=== PATIENT | male | born 1955 | race Caucasian/White ===

== ENCOUNTER → 2017-04-25 06:48 | Outpatient (CLI) | payer OTHER, SELFPAY ==
[2017-04-25 08:14] LABS: Absolute Neutrophil Count 2.8 X10^3/uL (2.0-7.7); Basophil# 0.03 X10^3/uL; Basophil% 0.6 % (0-1); Eosinophil# 0.21 X10^3/uL; Hematocrit 40.7 % (40-54); Hemoglobin 13.5 g/dl (13.0-16.5); Lymphocyte % 30.7 % (19-41); Mean Corp Hgb Conc 33.2 g/gl (32-36); Mean Corpuscular Hgb 29.9 pg (27.0-32.0); Mean Corpuscular Volume 90.2 fL (80-94); Mean Platelet Vol. 11.1 fl (6.2-12.0); Monocyte# 0.59 X10^3/uL; Monocyte% 11.3 % (0-10); Neutrophil # 2.78 X10^3/uL (2.7-7.7); Neutrophil % 53.4 % (47-70); Platelet Count 196 K/mm3 (150-450); RBC Distribution Width CV 12.8 % (11.6-14.6); RBC Distribution Width SD 41.7 fl (35.1-43.9); Red Blood Count 4.51 M/mm3 (4.6-6.2); White Blood Count 5.2 K/mm3 (4.4-11.0)
[2017-04-25 08:20] LABS: POSITIVE COUNT NO; POSITIVE DIFFERENTIAL NO; POSITIVE MORPHOLOGY NO
[2017-04-25 08:48] LABS: ALB/GLOB Ratio 1.1 RATIO (0.9-2.4); AST(SGOT) 36 U/L (15-37); Alanine Aminotransfer ALT/SGPT 53 U/L (16-61); Albumin, Serum 3.8 g/dL (3.2-5.0); Alkaline Phosphatase 78 U/L (45-117); Anion Gap 9 (5-15); BUN 18 mg/dL (7-18); BUN/Creat Ratio 17.6 RATIO (10-20); Calcium,Total 8.3 mg/dL (8.5-10.1); Chloride 103 mmol/L (98-107); Creatinine, Serum 1.02 mg/dL (0.70-1.30); EST Glomerular Filtration Rate 78 mL/min (>60); Est Glom Filt Rate - Afr Amer 95 mL/min (>60); Globulin 3.4 g/dL (2.2-4.2); Glucose 87 mg/dL (70-110); Potassium 3.8 mmol/L (3.5-5.1); Protein, Total 7.2 g/dL (6.4-8.2); Sodium Level 138 mmol/L (136-145); Uric Acid 7.8 mg/dL (3.5-7.2)
== END ==
PROVIDERS: Family Provider Internal Medicine; PCP Internal Medicine; Visit Provider Internal Medicine Rheumatology
DX: M06.4 Inflammatory polyarthropathy (principal); M10.9 Gout, unspecified; M18.9 Osteoarthritis of first carpometacarpal joint, unspecified; K90.0 Celiac disease; J30.89 Other allergic rhinitis
CPT/HCPCS: 36415; 80053; 84550; 85025

== ENCOUNTER → 2017-06-01 07:44 | Outpatient (CLI) | payer OTHER, SELFPAY ==
[2017-06-02 09:48] LABS: Vitamin D,25 Hydroxy 17.3 ng/mL (29.95-100.01)
[2017-06-02 16:10] LABS: Endomysial Antibody IgA Negative (Negative)
[2017-06-03 13:03] LABS: Immunoglobulin A 245 mg/dL (61-437); t-Transglutaminase IgA <2 U/mL (0-3)
== END ==
PROVIDERS: Family Provider Internal Medicine; PCP Internal Medicine; Visit Provider Internal Medicine Gastroenterology
DX: K90.0 Celiac disease (principal)
CPT/HCPCS: 36415; 82306; 82784; 83516; 86255

== ENCOUNTER → 2017-07-28 06:33 | Outpatient (CLI) | payer OTHER, SELFPAY ==
[2017-07-28 07:13] LABS: Absolute Lymphocyte Count 1.67 X10^3/ul (0.83-4.51); Basophil# 0.03 X10^3/uL; Basophil% 0.5 % (0-1); Eosinophils% 3.7 % (0-5); Hematocrit 39.5 % (40-54); Hemoglobin 13.6 g/dl (13.0-16.5); Lymphocyte # 1.67 X10^3/ul (4.0); Lymphocyte % 30.5 % (19-41); Mean Corp Hgb Conc 34.4 g/gl (32-36); Mean Corpuscular Hgb 30.8 pg (27.0-32.0); Mean Corpuscular Volume 89.6 fL (80-94); Mean Platelet Vol. 10.8 fl (6.2-12.0); Monocyte# 0.54 X10^3/uL; Monocyte% 9.9 % (0-10); Neutrophil # 3.01 X10^3/uL (2.7-7.7); Platelet Count 205 K/mm3 (150-450); RBC Distribution Width CV 12.5 % (11.6-14.6); RBC Distribution Width SD 40.7 fl (35.1-43.9); Red Blood Count 4.41 M/mm3 (4.6-6.2); White Blood Count 5.5 K/mm3 (4.4-11.0)
[2017-07-28 07:15] LABS: POSITIVE COUNT NO; POSITIVE DIFFERENTIAL NO; POSITIVE MORPHOLOGY NO
[2017-07-28 07:24] LABS: ALB/GLOB Ratio 1.4 RATIO (0.9-2.4); AST(SGOT) 38 U/L (15-37); Alanine Aminotransfer ALT/SGPT 55 U/L (16-61); Albumin, Serum 4.1 g/dL (3.2-5.0); Alkaline Phosphatase 78 U/L (45-117); Anion Gap 7 (5-15); BUN 21 mg/dL (7-18); BUN/Creat Ratio 17.6 RATIO (10-20); Calcium,Total 8.6 mg/dL (8.5-10.1); Chloride 106 mmol/L (98-107); Creatinine, Serum 1.19 mg/dL (0.70-1.30); EST Glomerular Filtration Rate 66 mL/min (>60); Est Glom Filt Rate - Afr Amer 79 mL/min (>60); Glucose 85 mg/dL (74-106); Potassium 4.1 mmol/L (3.5-5.1); Protein, Total 7.1 g/dL (6.4-8.2); Sodium Level 139 mmol/L (136-145); Uric Acid 4.8 mg/dL (3.5-7.2)
[2017-07-28 08:20] LABS: Vitamin D,25 Hydroxy 24.7 ng/mL (29.95-100.01)
== END ==
PROVIDERS: Family Provider Internal Medicine; PCP Internal Medicine; Visit Provider Internal Medicine Rheumatology
DX: M06.4 Inflammatory polyarthropathy (principal); M10.9 Gout, unspecified; M18.9 Osteoarthritis of first carpometacarpal joint, unspecified; K90.0 Celiac disease; J30.89 Other allergic rhinitis
CPT/HCPCS: 36415; 80053; 82306; 84550; 85025

== ENCOUNTER → 2017-08-10 09:11 | Outpatient (CLI) | payer OTHER, SELFPAY ==
--- NOTE | 2017-08-10 09:21 | BD_ITS ---
STUDY: DUAL ENERGY X-RAY ABSORPTIOMETRY / DXA REASON FOR EXAM: Male, 61 years old. History of the celiac disease. Loss of height. TECHNIQUE: Bone Mineral Density (BMD) measurements of lumbar spine and bilateral hips were obtained. COMPARISON: None. FINDINGS: Lumbar Spine (L1-L4): g/cm2 (1.382) / T-score (1.2) / Z-score (1.6) Findings are suggestive of normal bone density with a low fracture risk. Left Femur Total: g/cm2 (1.192) / T-score (0.6) / Z-score (1.2) Left Femoral Neck: g/cm2 (1.105) / T-score (0.3) / Z-score (1.3) Right Femur Total: g/cm2 (1.212) / T-score (0.8) / Z-score (1.3) Right Femoral Neck: g/cm2 (1.074) / T-score (0.0) / Z-score (1.1) BD/Dexa Bone Density Study IMPRESSION: The patient is considered normal as outlined below according to World Ryan Organization (WHO) criteria with a low fracture risk. Reference Information: The T-score is the number of standard deviations above or below the standard which is normal for young adults at their peak bone mineral density. The World Health Organization (WHO) interprets the T-scores as follows: Above -1 Normal bone density Between -1 and -2.5 Osteopenia Equal to / or below -2.5 Osteoporosis As a practical clinical guideline, osteopenia may be graded as follows: Mild -1 through -1.5 Moderate -1.6 through -2.0 Severe -2.1 through -2.4 The Z-score is the number of standard deviations above or below age-matched controls. A Z-score of less than -1.5 would be considered abnormal. References: 1. NIH Osteoporosis and Related Bone Diseases http://www.osteo.org 2. International Society for Clinical Densitometry http://www.iscd.org 3. National Osteoporosis Foundation http://www.nof.org Electronically Signed: Corey Cristina MD at 9:52 EDT Tel [phone], Service support ,
== END ==
PROVIDERS: Visit Provider Internal Medicine Gastroenterology
DX: K90.0 Celiac disease (principal)
CPT/HCPCS: 77080

== ENCOUNTER → 2017-09-15 06:44 | Outpatient (CLI) | payer OTHER, SELFPAY ==
[2017-09-26 10:08] LABS: Fats, Neutral Increased (.); Fats, Total Normal (.)
== END ==
PROVIDERS: Visit Provider Internal Medicine Gastroenterology
DX: R19.7 Diarrhea, unspecified (principal)
CPT/HCPCS: 82705

== ENCOUNTER → 2017-11-01 06:59 | Outpatient (CLI) | payer OTHER, SELFPAY ==
[2017-11-01 08:29] LABS: ALB/GLOB Ratio 1.2 RATIO (0.9-2.4); AST(SGOT) 34 U/L (15-37); Alanine Aminotransfer ALT/SGPT 54 U/L (16-61); Albumin, Serum 3.9 g/dL (3.2-5.0); Alkaline Phosphatase 74 U/L (45-117); Anion Gap 8 (5-15); BUN 21 mg/dL (7-18); BUN/Creat Ratio 17.1 RATIO (10-20); Calcium,Total 8.6 mg/dL (8.5-10.1); Chloride 103 mmol/L (98-107); Creatinine, Serum 1.23 mg/dL (0.70-1.30); EST Glomerular Filtration Rate 63 mL/min (>60); Est Glom Filt Rate - Afr Amer 76 mL/min (>60); Globulin 3.2 g/dL (2.2-4.2); Glucose 88 mg/dL (74-106); Protein, Total 7.1 g/dL (6.4-8.2); Sodium Level 139 mmol/L (136-145); Uric Acid 5.1 mg/dL (3.5-7.2)
[2017-11-01 09:52] LABS: Vitamin D,25 Hydroxy 50.8 ng/mL (29.95-100.01)
== END ==
PROVIDERS: Visit Provider Internal Medicine Rheumatology
DX: M06.4 Inflammatory polyarthropathy (principal); M10.9 Gout, unspecified; M18.9 Osteoarthritis of first carpometacarpal joint, unspecified; K90.0 Celiac disease; J30.89 Other allergic rhinitis
CPT/HCPCS: 36415; 80053; 82306; 84550

== ENCOUNTER → 2018-05-01 05:52 | Outpatient (CLI) | payer OTHER, SELFPAY ==
[2018-05-01 07:11] LABS: Absolute Lymphocyte Count 1.46 X10^3/ul (0.83-4.51); Absolute Neutrophil Count 2.9 X10^3/uL (2.0-7.7); Basophil# 0.03 X10^3/uL; Basophil% 0.6 % (0-1); Eosinophil# 0.17 X10^3/uL; Eosinophils% 3.3 % (0-5); Hematocrit 41.6 % (40-54); Hemoglobin 13.7 g/dl (13.0-16.5); Lymphocyte # 1.46 X10^3/ul (4.0); Lymphocyte % 28.3 % (19-41); Mean Corp Hgb Conc 32.9 g/gl (32-36); Mean Corpuscular Hgb 29.5 pg (27.0-32.0); Mean Corpuscular Volume 89.5 fL (80-94); Mean Platelet Vol. 11.4 fl (6.2-12.0); Monocyte# 0.55 X10^3/uL; Monocyte% 10.7 % (0-10); Neutrophil # 2.94 X10^3/uL (2.7-7.7); Neutrophil % 56.9 % (47-70); Platelet Count 201 K/mm3 (150-450); RBC Distribution Width CV 12.3 % (11.6-14.6); RBC Distribution Width SD 39.9 fl (35.1-43.9); Red Blood Count 4.65 M/mm3 (4.6-6.2); White Blood Count 5.2 K/mm3 (4.4-11.0)
[2018-05-01 07:17] LABS: POSITIVE COUNT NO; POSITIVE DIFFERENTIAL NO; POSITIVE MORPHOLOGY NO
[2018-05-01 07:32] LABS: ALB/GLOB Ratio 1.2 RATIO (0.9-2.4); AST(SGOT) 37 U/L (15-37); Alanine Aminotransfer ALT/SGPT 56 U/L (16-61); Albumin, Serum 3.9 g/dL (3.2-5.0); Alkaline Phosphatase 81 U/L (45-117); Anion Gap 9 (5-15); BUN 21 mg/dL (7-18); BUN/Creat Ratio 18.6 RATIO (10-20); Calcium,Total 8.7 mg/dL (8.5-10.1); Chloride 103 mmol/L (98-107); Creatinine, Serum 1.13 mg/dL (0.70-1.30); EST Glomerular Filtration Rate 69 mL/min (>60); Est Glom Filt Rate - Afr Amer 84 mL/min (>60); Globulin 3.3 g/dL (2.2-4.2); Glucose 88 mg/dL (74-106); Potassium 4.2 mmol/L (3.5-5.1); Protein, Total 7.2 g/dL (6.4-8.2); Sodium Level 140 mmol/L (136-145); Uric Acid 4.3 mg/dL (3.5-7.2)
== END ==
PROVIDERS: Family Provider Family Medicine; PCP Family Medicine; Referring Provider Internal Medicine Rheumatology; Visit Provider Internal Medicine Rheumatology
DX: M06.4 Inflammatory polyarthropathy (principal); M10.9 Gout, unspecified; M18.9 Osteoarthritis of first carpometacarpal joint, unspecified; E55.9 Vitamin D deficiency, unspecified; K90.0 Celiac disease; J30.89 Other allergic rhinitis
CPT/HCPCS: 36415; 80053; 84550; 85025

== ENCOUNTER → 2018-10-16 | Outpatient (CLI) | payer MEDICARE, OTHER, SELFPAY ==
[2018-10-16 15:45] LABS: Absolute Lymphocyte Count 1.61 X10^3/uL (0.83-4.51); Absolute Neutrophil Count 3.5 X10^3/uL (2.0-7.7); Basophil# 0.03 X10^3/uL; Basophil% 0.5 % (0-1); Eosinophil# 0.17 X10^3/uL; Hematocrit 42.7 % (40-54); Hemoglobin 14.6 g/dL (13.0-16.5); Lymphocyte # 1.61 X10^3/ul (4.0); Lymphocyte % 28.2 % (19-41); Mean Corp Hgb Conc 34.2 g/dL (32-36); Mean Corpuscular Hgb 30.7 pg (27.0-32.0); Mean Corpuscular Volume 89.7 fL (80-94); Mean Platelet Vol. 10.8 fl (6.2-12.0); Monocyte# 0.39 X10^3/uL; Monocyte% 6.8 % (0-10); NRBC Flagged by Analyzer 0 % (0-5); Neutrophil # 3.48 X10^3/uL (2.7-7.7); Platelet Count 208 K/mm3 (150-450); RBC Distribution Width SD 39.8 fl (35.1-43.9); Red Blood Count 4.76 M/mm3 (4.6-6.2); White Blood Count 5.7 K/mm3 (4.4-11.0)
[2018-10-16 16:29] LABS: ALB/GLOB Ratio 1.2 RATIO (0.9-2.4); AST(SGOT) 35 U/L (15-37); Alanine Aminotransfer ALT/SGPT 51 U/L (16-61); Albumin, Serum 3.8 g/dL (3.2-5.0); Alkaline Phosphatase 76 U/L (45-117); Anion Gap 12 (5-15); BUN 14 mg/dL (7-18); BUN/Creat Ratio 10.5 RATIO (10-20); Calcium,Total 8.7 mg/dL (8.5-10.1); Chloride 105 mmol/L (98-107); Creatinine, Serum 1.33 mg/dL (0.70-1.30); EST Glomerular Filtration Rate 57 mL/min (>60); Est Glom Filt Rate - Afr Amer 69 mL/min (>60); Globulin 3.2 g/dL (2.2-4.2); Glucose 144 mg/dL (74-106); Potassium 3.9 mmol/L (3.5-5.1); Sodium Level 140 mmol/L (136-145); Uric Acid 4.5 mg/dL (3.5-7.2)
== END | disposition home or self-care (01) ==
LOC: LAB 15:08
PROVIDERS: Family Provider Family Medicine; PCP Family Medicine; Referring Provider Internal Medicine Rheumatology; Visit Provider Internal Medicine Rheumatology
DX: M06.4 Inflammatory polyarthropathy (principal); M10.9 Gout, unspecified; M18.9 Osteoarthritis of first carpometacarpal joint, unspecified; E55.9 Vitamin D deficiency, unspecified; K90.0 Celiac disease; J30.89 Other allergic rhinitis
CPT/HCPCS: 36415; 80053; 84550; 85025

== ENCOUNTER → 2018-12-11 12:40 | Outpatient (CLI) | payer MEDICARE, OTHER, SELFPAY ==
[2018-12-11 13:12] LABS: Absolute Lymphocyte Count 1.71 X10^3/uL (0.83-4.51); Absolute Neutrophil Count 3.4 X10^3/uL (2.0-7.7); Basophil# 0.05 X10^3/uL; Basophil% 0.8 % (0-1); Eosinophil# 0.17 X10^3/uL; Eosinophils% 2.9 % (0-5); Hematocrit 43.2 % (40-54); Hemoglobin 14.4 g/dL (13.0-16.5); Lymphocyte # 1.71 X10^3/ul (4.0); Lymphocyte % 28.7 % (19-41); Mean Corp Hgb Conc 33.3 g/dL (32-36); Mean Corpuscular Hgb 30.2 pg (27.0-32.0); Mean Corpuscular Volume 90.6 fL (80-94); Mean Platelet Vol. 10.8 fl (6.2-12.0); Monocyte# 0.63 X10^3/uL; Monocyte% 10.6 % (0-10); NRBC Flagged by Analyzer 0 % (0-5); Neutrophil # 3.37 X10^3/uL (2.7-7.7); Neutrophil % 56.5 % (47-70); Platelet Count 231 K/mm3 (150-450); RBC Distribution Width CV 12.6 % (11.6-14.6); RBC Distribution Width SD 41.6 fl (35.1-43.9); Red Blood Count 4.77 M/mm3 (4.6-6.2)
[2018-12-11 13:38] LABS: ALB/GLOB Ratio 1.1 RATIO (0.9-2.4); AST(SGOT) 44 U/L (15-37); Alanine Aminotransfer ALT/SGPT 61 U/L (16-61); Albumin, Serum 3.8 g/dL (3.2-5.0); Alkaline Phosphatase 78 U/L (45-117); Anion Gap 8 (5-15); BUN 14 mg/dL (7-18); BUN/Creat Ratio 12.5 RATIO (10-20); Calcium,Total 8.9 mg/dL (8.5-10.1); Chloride 107 mmol/L (98-107); Creatinine, Serum 1.12 mg/dL (0.70-1.30); EST Glomerular Filtration Rate 70 mL/min (>60); Est Glom Filt Rate - Afr Amer 85 mL/min (>60); Globulin 3.5 g/dL (2.2-4.2); Glucose 75 mg/dL (74-106); Potassium 4.3 mmol/L (3.5-5.1); Protein, Total 7.3 g/dL (6.4-8.2); Sodium Level 142 mmol/L (136-145); Uric Acid 6.5 mg/dL (3.5-7.2)
== END ==
PROVIDERS: Family Provider Family Medicine; PCP Family Medicine; Referring Provider Internal Medicine Rheumatology; Visit Provider Internal Medicine Rheumatology
DX: M06.4 Inflammatory polyarthropathy (principal); M10.9 Gout, unspecified; M18.9 Osteoarthritis of first carpometacarpal joint, unspecified; E55.9 Vitamin D deficiency, unspecified; K90.0 Celiac disease; J30.89 Other allergic rhinitis
CPT/HCPCS: 36415; 80053; 84550; 85025

== ENCOUNTER → 2018-12-26 08:53 | Outpatient (CLI) | payer MEDICARE, OTHER, SELFPAY ==
[2018-12-26 09:25] LABS: Absolute Lymphocyte Count 1.68 X10^3/uL (0.83-4.51); Absolute Neutrophil Count 2.7 X10^3/uL (2.0-7.7); Basophil# 0.06 X10^3/uL; Basophil% 1.2 % (0-1); Eosinophils% 3.9 % (0-5); Hematocrit 44.8 % (40-54); Hemoglobin 14.6 g/dL (13.0-16.5); Lymphocyte # 1.68 X10^3/ul (4.0); Lymphocyte % 32.4 % (19-41); Mean Corp Hgb Conc 32.6 g/dL (32-36); Mean Corpuscular Hgb 29.9 pg (27.0-32.0); Mean Corpuscular Volume 91.8 fL (80-94); Monocyte# 0.51 X10^3/uL; Monocyte% 9.8 % (0-10); NRBC Flagged by Analyzer 0 % (0-5); Neutrophil # 2.71 X10^3/uL (2.7-7.7); Neutrophil % 52.3 % (47-70); Platelet Count 208 K/mm3 (150-450); RBC Distribution Width CV 12.3 % (11.6-14.6); RBC Distribution Width SD 41.7 fl (35.1-43.9); Red Blood Count 4.88 M/mm3 (4.6-6.2); White Blood Count 5.2 K/mm3 (4.4-11.0)
[2018-12-26 10:09] LABS: ALB/GLOB Ratio 1.1 RATIO (0.9-2.4); AST(SGOT) 36 U/L (15-37); Alanine Aminotransfer ALT/SGPT 55 U/L (16-61); Albumin, Serum 3.6 g/dL (3.2-5.0); Alkaline Phosphatase 80 U/L (45-117); Anion Gap 9 (5-15); BUN 15 mg/dL (7-18); BUN/Creat Ratio 13.3 RATIO (10-20); Calcium,Total 8.2 mg/dL (8.5-10.1); Chloride 108 mmol/L (98-107); Cholesterol 219 mg/dL (200); Creatinine, Serum 1.13 mg/dL (0.70-1.30); EST Glomerular Filtration Rate 69 mL/min (>60); Est Glom Filt Rate - Afr Amer 84 mL/min (>60); Globulin 3.4 g/dL (2.2-4.2); Glucose 103 mg/dL (74-106); High Density Lipoprotein 37 mg/dL; Potassium 4.2 mmol/L (3.5-5.1); Sodium Level 142 mmol/L (136-145); T4 Free Direct 0.88 ng/dL (0.76-1.46); Thyroid Stim Hormone (TSH) 4.87 uIU/mL (0.358-3.74); Triglycerides 249 mg/dL; Very Low Density Lipoprotein 50 mg/dL (5-40)
== END ==
LOC: LAB.FUTURE 08:57 → LAB 09:00
PROVIDERS: Family Provider Family Medicine; PCP Family Medicine; Referring Provider Family Medicine; Visit Provider Family Medicine
DX: I10 Essential (primary) hypertension (principal); E78.5 Hyperlipidemia, unspecified; E03.9 Hypothyroidism, unspecified; M10.9 Gout, unspecified; Z51.81 Encounter for therapeutic drug level monitoring; Z12.5 Encounter for screening for malignant neoplasm of prostate
CPT/HCPCS: 36415; 80053; 80061; 84153; 84439; 84443; 84550; 85025; G0103

== ENCOUNTER → 2019-05-21 11:53 | Outpatient (CLI) | payer MEDICARE, OTHER, SELFPAY ==
[2019-05-21 13:07] LABS: Absolute Lymphocyte Count 1.51 X10^3/uL (0.83-4.51); Absolute Neutrophil Count 4.2 X10^3/uL (2.0-7.7); Basophil# 0.04 X10^3/uL; Basophil% 0.6 % (0-1); Eosinophil# 0.14 X10^3/uL; Eosinophils% 2.2 % (0-5); Hematocrit 41.7 % (40-54); Hemoglobin 13.9 g/dL (13.0-16.5); Lymphocyte # 1.51 X10^3/ul (4.0); Lymphocyte % 23.6 % (19-41); Mean Corp Hgb Conc 33.3 g/dL (32-36); Mean Corpuscular Hgb 29.7 pg (27.0-32.0); Mean Corpuscular Volume 89.1 fL (80-94); Mean Platelet Vol. 11.3 fl (6.2-12.0); Monocyte# 0.53 X10^3/uL; Monocyte% 8.3 % (0-10); NRBC Flagged by Analyzer 0 % (0-5); Neutrophil # 4.15 X10^3/uL (2.7-7.7); Neutrophil % 64.8 % (47-70); Platelet Count 194 K/mm3 (150-450); RBC Distribution Width CV 13.2 % (11.6-14.6); RBC Distribution Width SD 42.6 fl (35.1-43.9); Red Blood Count 4.68 M/mm3 (4.6-6.2); White Blood Count 6.4 K/mm3 (4.4-11.0)
[2019-05-21 13:44] LABS: AST(SGOT) 44 U/L (15-37); Alanine Aminotransfer ALT/SGPT 70 U/L (16-61); Albumin, Serum 3.5 g/dL (3.2-5.0); Alkaline Phosphatase 78 U/L (45-117); Anion Gap 6 (5-15); BUN 12 mg/dL (7-18); BUN/Creat Ratio 11.1 RATIO (10-20); Calcium,Total 8.7 mg/dL (8.5-10.1); Chloride 107 mmol/L (98-107); Creatinine, Serum 1.08 mg/dL (0.70-1.30); EST Glomerular Filtration Rate 73 mL/min (>60); Est Glom Filt Rate - Afr Amer 88 mL/min (>60); Globulin 3.4 g/dL (2.2-4.2); Glucose 96 mg/dL (74-106); Potassium 4.1 mmol/L (3.5-5.1); Protein, Total 6.9 g/dL (6.4-8.2); Sodium Level 139 mmol/L (136-145); Uric Acid 4.9 mg/dL (3.5-7.2)
== END ==
PROVIDERS: PCP Family Medicine; Referring Provider Internal Medicine Rheumatology; Visit Provider Internal Medicine Rheumatology
DX: M06.4 Inflammatory polyarthropathy (principal); M10.9 Gout, unspecified; M18.9 Osteoarthritis of first carpometacarpal joint, unspecified; K90.0 Celiac disease; J30.89 Other allergic rhinitis; M18.11 Unilateral primary osteoarthritis of first carpometacarpal joint, right hand
CPT/HCPCS: 36415; 80053; 84550; 85025

== ENCOUNTER → 2019-08-30 07:50 | Outpatient (CLI) | payer MEDICARE, OTHER, SELFPAY ==
--- NOTE | 2019-08-30 07:55 | US_ITS ---
STUDY: ABDOMINAL ULTRASOUND - RIGHT UPPER QUADRANT REASON FOR VISIT: Male, 63 years old abn labs TECHNIQUE: Ultrasound evaluation of the right upper quadrant was performed with real-time and static blackwell-scale imaging. TECHNICAL QUALITY: Adequate. COMPARISON: None. FINDINGS: Liver: The liver is mildly enlarged and measures 18.2 cm. There is increased echogenicity consistent with fatty infiltration. The bile ducts are within normal limits. There is hepatic color flow. The direction of portal flow is hepatopetal. There is no demonstrated mass lesion. Gallbladder: Normal distended gallbladder. The gallbladder wall measures 2.6 mm. There is a negative sonographic Reynoso''s sign. There is no pericholecystic fluid. There are no gallstones. Common Bile Duct (C.B.D.): The common bile duct measures 4.3 mm. Pancreas: Normal size of the head, body and tail of the pancreas. There is normal echogenicity of the pancreas. There is no demonstrated pancreatic mass or cyst. Right Kidney: Normal size of the right kidney. The right kidney measures 11.1 cm x 6.3 cm x 6.3 cm. Normal renal cortex. The right cortex measures 1.6 cm. There is no demonstrated renal mass or cyst. There is no right hydronephrosis. US/Liver IMPRESSION: Mild hepatomegaly. Diffuse fatty infiltration of the liver. Electronically Signed: Corey Cristina, at 9:51 EDT , Service support ,
[2019-08-30 09:09] LABS: Absolute Lymphocyte Count 1.65 X10^3/uL (0.83-4.51); Absolute Neutrophil Count 3.6 X10^3/uL (2.0-7.7); Basophil# 0.05 X10^3/uL; Basophil% 0.8 % (0-1); Eosinophil# 0.17 X10^3/uL; Eosinophils% 2.9 % (0-5); Hematocrit 43.3 % (40-54); Hemoglobin 14.1 g/dL (13.0-16.5); Lymphocyte # 1.65 X10^3/ul (4.0); Lymphocyte % 27.8 % (19-41); Mean Corp Hgb Conc 32.6 g/dL (32-36); Mean Corpuscular Hgb 30.6 pg (27.0-32.0); Mean Corpuscular Volume 93.9 fL (80-94); Mean Platelet Vol. 10.8 fl (6.2-12.0); Monocyte# 0.47 X10^3/uL; Monocyte% 7.9 % (0-10); NRBC Flagged by Analyzer 0 % (0-5); Neutrophil # 3.57 X10^3/uL (2.7-7.7); Neutrophil % 60.3 % (47-70); Platelet Count 196 K/mm3 (150-450); RBC Distribution Width CV 12.8 % (11.6-14.6); RBC Distribution Width SD 43.7 fl (35.1-43.9); Red Blood Count 4.61 M/mm3 (4.6-6.2); White Blood Count 5.9 K/mm3 (4.4-11.0)
[2019-08-30 09:45] LABS: ALB/GLOB Ratio 0.9 RATIO (0.9-2.4); AST(SGOT) 53 U/L (15-37); Alanine Aminotransfer ALT/SGPT 57 U/L (16-61); Albumin, Serum 3.5 g/dL (3.2-5.0); Alkaline Phosphatase 79 U/L (45-117); Anion Gap 7 (5-15); BUN 22 mg/dL (7-18); BUN/Creat Ratio 18.6 RATIO (10-20); Calcium,Total 8.6 mg/dL (8.5-10.1); Chloride 103 mmol/L (98-107); Creatinine, Serum 1.18 mg/dL (0.70-1.30); EST Glomerular Filtration Rate 66 mL/min (>60); Est Glom Filt Rate - Afr Amer 80 mL/min (>60); Globulin 3.7 g/dL (2.2-4.2); Glucose 98 mg/dL (74-106); Potassium 3.9 mmol/L (3.5-5.1); Protein, Total 7.2 g/dL (6.4-8.2); Sodium Level 137 mmol/L (136-145); Uric Acid 5.7 mg/dL (3.5-7.2)
== END ==
PROVIDERS: PCP Family Medicine; Referring Provider Internal Medicine Rheumatology; Visit Provider Internal Medicine Rheumatology
DX: M06.4 Inflammatory polyarthropathy (principal); M10.9 Gout, unspecified; M18.0 Bilateral primary osteoarthritis of first carpometacarpal joints; K90.0 Celiac disease; J30.89 Other allergic rhinitis
CPT/HCPCS: 36415; 76705; 80053; 84550; 85025

== ENCOUNTER → 2019-09-03 16:06 | Outpatient (CLI) | payer MEDICARE, OTHER, SELFPAY ==
--- NOTE | 2019-09-03 16:45 | MRI_ITS ---
STUDY: MRI BRAIN WITH AND WITHOUT CONTRAST REASON FOR EXAM: Male, 63 years old. Bilat.( R and gt;L) tinnitus and amp; hearing loss TECHNIQUE: Standardized multiplanar fat and water weighted pulse sequences were obtained. 20ml Dotarem via IV was administered for the contrast portion of the examination. COMPARISON: None. FINDINGS: There is mild cerebral atrophy with widening of the extra-axial spaces and ventricular dilatation. There are a limited number of small white matter hyperintensities, distributed throughout the deep white matter tracts of the cerebral hemispheres, consistent with mild chronic white matter ischemic changes. There is no evidence for recent intracranial ischemia or other cause of cytotoxic edema on diffusion weighted imaging (DWI). Normal bilateral basal ganglia. Normal thalami. There is no extra-axial fluid accumulation. Normal flow voids within the major intracranial circulation suggesting patency by spin echo criteria. Normal venous enhancement. There is no enhancing intra-axial or extra-axial abnormality. No abnormal meningeal or parenchymal or dural enhancement. No abnormal masses. Normal sella turcica, pituitary gland, infundibular stalk, optic chiasm and hypothalamus. Normal tectal plate and pineal gland. Normal midbrain, desi and medulla. Normal cerebellum. Normal basal cisterns. Normal bilateral temporal bones. Normal bilateral internal auditory canals. No demonstrated orbital abnormality, within the constraints of a routine brain study. Normal visualized paranasal sinuses. Normal calvarium and skull base. Normal visualized soft tissue structures. IMPRESSION: 1. Chronic and mild involutional and ischemic changes of the brain, as described above. 2. No abnormal meningeal or parenchymal or dural enhancement. No abnormal masses. Electronically Signed: Nelson Kwan MD at 23:59 EDT , Service support , STUDY: MRI BRAIN WITH AND WITHOUT CONTRAST (ATTENTION INTERNAL AUDITORY CANALS - I.A.C.''s) REASON FOR EXAM: Male, 63 years old. Bilat.( RTgt;L) tinnitus Tamp; hearing loss TECHNIQUE: Standardized multiplanar fat and water weighted pulse sequences were obtained. Gadolinium contrast material was administered intravenously for the contrast portion of the examination. COMPARISON: MRI of the brain dated September 03, 2019 FINDINGS: Normal bilateral temporal bones. Normal bilateral internal auditory canals. There is no demonstrated intracanalicular or cisternal vestibular schwannoma (acoustic neuroma). There is no enhancement of the bilateral VIIth or VIIIth cranial nerves. Normal bilateral cochlea, vestibules and semicircular canals. No abnormal opacification of the mastoid air cells seen. No cerebellar pontine angle mass or cyst. There is asymmetry of the ventircles consistent with an anatomic variant. There are a limited number of small white matter hyperintensities, distributed throughout the deep white matter tracts of the cerebral hemispheres, consistent with mild chronic white matter ischemic changes. There is no evidence for recent intracranial ischemia or other cause of cytotoxic edema on diffusion weighted imaging (DWI). Normal bilateral basal ganglia. Normal thalami. Normal flow voids within the major intracranial circulation suggesting patency by spin echo criteria. Normal venous enhancement. There is no enhancing intra-axial or extra-axial abnormality. There is no extra-axial fluid accumulation. MRI/Brain W/WO Contrast IMPRESSION: 1. Negative unenhanced and enhanced MRI of the bilateral internal auditory canals (I.A.C''s). 2. Normal bilateral cochlea, vestibules and semicircular canals. No abnormal opacification of the mastoid air cells seen. No cerebellar pontine angle mass or cyst. Electronically Signed: Nelson Kwan MD at 0:01 EDT , Service support ,
== END ==
PROVIDERS: PCP Family Medicine; Referring Provider Otolaryngology; Visit Provider Otolaryngology
DX: H93.11 Tinnitus, right ear (principal); H91.91 Unspecified hearing loss, right ear
CPT/HCPCS: 70553; A9575

== ENCOUNTER → 2019-11-13 11:09 | Outpatient (CLI) | payer MEDICARE, OTHER, SELFPAY ==
--- NOTE | 2019-11-13 11:18 | RAD_ITS ---
STUDY: X-RAY - RIGHT KNEE REASON FOR EXAM: Male, 64 years old. CHRONIC PAIN TECHNIQUE: 4 view(s) of the knee. COMPARISON: None. FINDINGS: Normal visualized distal femur. Normal visualized proximal tibia and fibula. Normal proximal tibiofibular articulation. There is mild degenerative arthrosis of the medial femorotibial compartment. There is mild degenerative arthrosis of the lateral femorotibial compartment. There is mild degenerative arthrosis of the patellofemoral articulation. The soft tissue structures are unremarkable. RAD/Knee 4 or More Views IMPRESSION: Mild arthrosis Electronically Signed: Gigi Banuelos MD at 11:39 EDT , Service support ,
--- NOTE | 2019-11-13 11:20 | RAD_ITS ---
STUDY: X-RAY - LEFT KNEE REASON FOR EXAM: Male, 64 years old. CHRONIC PAIN TECHNIQUE: 4 view(s) of the knee. COMPARISON: None. FINDINGS: Normal visualized distal femur. Normal visualized proximal tibia and fibula. Normal proximal tibiofibular articulation. There is mild degenerative arthrosis of the medial femorotibial compartment. There is mild degenerative arthrosis of the lateral femorotibial compartment. There is mild degenerative arthrosis of the patellofemoral articulation. The soft tissue structures are unremarkable. RAD/Knee 4 or More Views IMPRESSION: Mild arthrosis Electronically Signed: Gigi Banuelos MD at 11:39 EDT , Service support ,
== END ==
PROVIDERS: PCP Family Medicine; Referring Provider Family Medicine; Visit Provider Family Medicine
DX: M17.0 Bilateral primary osteoarthritis of knee (principal)
CPT/HCPCS: 73564

== ENCOUNTER → 2019-12-04 12:05 | Outpatient (CLI) | payer MEDICARE, OTHER, SELFPAY ==
[2019-12-04 13:25] LABS: Absolute Lymphocyte Count 1.67 X10^3/uL (0.83-4.51); Absolute Neutrophil Count 4.2 X10^3/uL (2.0-7.7); Basophil# 0.04 X10^3/uL; Basophil% 0.6 % (0-1); Eosinophil# 0.18 X10^3/uL; Eosinophils% 2.7 % (0-5); Hematocrit 42.7 % (40-54); Hemoglobin 14.4 g/dL (13.0-16.5); Lymphocyte # 1.67 X10^3/ul (4.0); Lymphocyte % 24.7 % (19-41); Mean Corp Hgb Conc 33.7 g/dL (32-36); Mean Corpuscular Hgb 30.6 pg (27.0-32.0); Mean Corpuscular Volume 90.9 fL (80-94); Mean Platelet Vol. 11.2 fl (6.2-12.0); Monocyte# 0.71 X10^3/uL; Monocyte% 10.5 % (0-10); NRBC Flagged by Analyzer 0 % (0-5); Neutrophil # 4.16 X10^3/uL (2.7-7.7); Neutrophil % 61.4 % (47-70); Platelet Count 240 K/mm3 (150-450); RBC Distribution Width CV 12.7 % (11.6-14.6); RBC Distribution Width SD 41.9 fl (35.1-43.9); White Blood Count 6.8 K/mm3 (4.4-11.0)
[2019-12-04 14:01] LABS: Hemoglobin A1c 5.8 % (3.8-5.6); Vitamin B12 305 pg/mL (211-911)
[2019-12-04 14:04] LABS: ALB/GLOB Ratio 1.1 RATIO (0.9-2.4); AST(SGOT) 45 U/L (15-37); Alanine Aminotransfer ALT/SGPT 43 U/L (16-61); Albumin, Serum 3.8 g/dL (3.2-5.0); Alkaline Phosphatase 91 U/L (45-117); Anion Gap 6 (5-15); BUN 20 mg/dL (7-18); BUN/Creat Ratio 17.9 RATIO (10-20); Calcium,Total 8.6 mg/dL (8.5-10.1); Chloride 105 mmol/L (98-107); Cholesterol 191 mg/dL (200); Creatinine, Serum 1.12 mg/dL (0.70-1.30); EST Glomerular Filtration Rate 70 mL/min (>60); Est Glom Filt Rate - Afr Amer 84 mL/min (>60); Globulin 3.6 g/dL (2.2-4.2); Glucose 90 mg/dL (74-106); High Density Lipoprotein 32 mg/dL; Potassium 3.9 mmol/L (3.5-5.1); Protein, Total 7.4 g/dL (6.4-8.2); Sodium Level 135 mmol/L (136-145); T4 Free Direct 0.99 ng/dL (0.76-1.46); Thyroid Stim Hormone (TSH) 2.62 uIU/mL (0.358-3.74); Triglycerides 238 mg/dL; Uric Acid 5.9 mg/dL (3.5-7.2); Very Low Density Lipoprotein 48 mg/dL (5-40)
== END ==
PROVIDERS: PCP Family Medicine; Referring Provider Family Medicine; Visit Provider Internal Medicine Rheumatology
DX: Z00.00 Encounter for general adult medical examination without abnormal findings (principal); K76.0 Fatty (change of) liver, not elsewhere classified; E03.9 Hypothyroidism, unspecified; K90.0 Celiac disease; M06.4 Inflammatory polyarthropathy; M10.9 Gout, unspecified; M18.0 Bilateral primary osteoarthritis of first carpometacarpal joints; J30.89 Other allergic rhinitis
CPT/HCPCS: 36415; 80053; 80061; 82607; 83036; 84439; 84443; 84550; 85025

== ENCOUNTER → 2019-12-16 17:22 | Outpatient (CLI) | payer MEDICARE, OTHER, SELFPAY | PROVIDERS: PCP Family Medicine; Referring Provider Physician Assistant; Visit Provider Physician Assistant | DX: Z20.828 Contact with and (suspected) exposure to other viral communicable diseases (principal) | CPT/HCPCS: 87635; C9803; U0003 ==

== ENCOUNTER 2020-05-13 18:18 | Emergency (ER) | payer MEDICARE, OTHER, SELFPAY ==
[2020-05-13 18:19] VITALS: BP 134/94; PULSE 75; RESP 16; TEMP 36.4; O2SAT 96; BMI 31.4
[2020-05-13 18:20] VITALS: BP 134/94; PULSE 76; RESP 16; TEMP 36.4; O2SAT 96
--- NOTE | 2020-05-13 20:17 | ED.VISSUMM ---
- ER Visit Summary Date of Service: 05/13/20 Chief Complaint: Laceration History of Present Illness: The patient is a [address] Doll. He is right-hand dominant. His tetanus is up-to-date. Reports that today he was cleaning his exercise bike when he suffered a laceration to his left index finger. He is unsure how this occurred. He does report he has paresthesias distal to this. Physical Examination: Vitals: Stable. Afebrile. General: Well-nourished and well-developed. Head: Normocephalic atraumatic. Neck: Supple, no lymphadenopathy. No JVD. Nontender. Cardiovascular: Regular rate and rhythm. No murmurs. Respiratory: No respiratory distress. Clear to auscultation bilaterally. Abdominal: Soft, nontender, nondistended, normal bowel sounds. No guarding, rebound, or peritoneal signs. Back: Nontender. Extremities: On the medial side of his left index finger at the level of his DIP joint there is a 1.5 cm laceration. He has decrease sensation to light touch over the medial side of his finger. However he has normal sensation light touch over the lateral side of his finger. There is no tendon involvement. He is able to flex his DIP joint against resistance. There is no active bleeding. Skin: Normal color, no rash. Neurologic: Alert and oriented ?3. Cranial nerves II through XII are intact. Normal strength and sensation. Psych: Normal affect. Emergency Department Course and Treatment: Patient had his wound anesthetized and repaired. He tolerated this well. Treatment Plan: Patient will be discharged instructions to follow-up with Dr. Keen, a hand surgeon at [facility], in 1 week for further evaluation of possible damage to a digital nerve. Return to the emergency department for any worsening symptoms. Disposition: To home in improved and stable condition. Impression: 1. Laceration left index finger, 1.5 cm, repaired. 2. Paresthesias left index finger distal phalanx medially. Procedure note: Wound was cleansed with chlorhexidine soap. Anesthetized with bupivacaine as a digital block. Copiously irrigated with normal saline. Wound was explored there is no foreign material present. It was closed with 4 simple interrupted 4-0 ethilon sutures. The patient tolerated it well. He was placed in an aluminum foam splint. This note was generated with [employer] dictation software. It may contain incorrect words, spelling, and punctuation that were not noted in review of the chart prior to signing ED Disposition - Plan for ED Patient: Disposition: Home or Assisted Living Instructions: ED Lac Hand Poss Nerve Injy Sutr Gl Additional Instructions: Follow up with Dr. Keen, within 1 week for another exam.
[2020-05-13] MEDS: Bupivacaine Mpf 0.5% 30 ML VIAL INFILT (20:29)
[2020-05-13 20:34] VITALS: RESP 16
== END 2020-05-13 20:34 | disposition home or self-care (01) ==
LOC: ED 19:19
PROVIDERS: Emergency Provider Emergency Medicine; PCP Family Medicine
DX: S61.211A Laceration without foreign body of left index finger without damage to nail, initial encounter (principal); R20.2 Paresthesia of skin; X58.XXXA Exposure to other specified factors, initial encounter; Y93.9 Activity, unspecified; Y92.9 Unspecified place or not applicable
CPT/HCPCS: 12001; 99283

== ENCOUNTER → 2020-05-27 09:33 | Outpatient (CLI) | payer MEDICARE, OTHER, SELFPAY ==
[2020-05-13 18:19] VITALS: BMI 31.4
[2020-05-27 10:17] LABS: Absolute Lymphocyte Count 1.33 X10^3/uL (0.83-4.51); Absolute Neutrophil Count 3.6 X10^3/uL (2.0-7.7); Basophil# 0.03 X10^3/uL; Basophil% 0.5 % (0-1); Eosinophils% 1.8 % (0-5); Hemoglobin 14.5 g/dL (13.0-16.5); Lymphocyte # 1.33 X10^3/ul (4.0); Lymphocyte % 24.1 % (19-41); Mean Corp Hgb Conc 32.2 g/dL (32-36); Mean Corpuscular Hgb 29.2 pg (27.0-32.0); Mean Corpuscular Volume 90.7 fL (80-94); Mean Platelet Vol. 10.4 fl (6.2-12.0); Monocyte# 0.46 X10^3/uL; Monocyte% 8.3 % (0-10); NRBC Flagged by Analyzer 0 % (0-5); Neutrophil # 3.58 X10^3/uL (2.7-7.7); Neutrophil % 65.1 % (47-70); Platelet Count 217 K/mm3 (150-450); RBC Distribution Width CV 12.7 % (11.6-14.6); RBC Distribution Width SD 41.9 fl (35.1-43.9); Red Blood Count 4.96 M/mm3 (4.6-6.2); White Blood Count 5.5 K/mm3 (4.4-11.0)
[2020-05-27 10:46] LABS: ALB/GLOB Ratio 1.1 RATIO (0.9-2.4); AST(SGOT) 32 U/L (15-37); Alanine Aminotransfer ALT/SGPT 39 U/L (16-61); Albumin, Serum 3.7 g/dL (3.2-5.0); Alkaline Phosphatase 88 U/L (45-117); Anion Gap 7 (5-15); BUN 23 mg/dL (7-18); BUN/Creat Ratio 19.8 RATIO (10-20); Chloride 104 mmol/L (98-107); Creatinine, Serum 1.16 mg/dL (0.70-1.30); EST Glomerular Filtration Rate 67 mL/min (>60); Est Glom Filt Rate - Afr Amer 81 mL/min (>60); Globulin 3.5 g/dL (2.2-4.2); Glucose 122 mg/dL (74-106); Potassium 4.1 mmol/L (3.5-5.1); Protein, Total 7.2 g/dL (6.4-8.2); Sodium Level 139 mmol/L (136-145)
== END ==
PROVIDERS: PCP Family Medicine; Referring Provider Internal Medicine Rheumatology; Visit Provider Internal Medicine Rheumatology
DX: M06.4 Inflammatory polyarthropathy (principal); M10.9 Gout, unspecified; M18.0 Bilateral primary osteoarthritis of first carpometacarpal joints; K90.0 Celiac disease; J30.89 Other allergic rhinitis; K76.0 Fatty (change of) liver, not elsewhere classified
CPT/HCPCS: 36415; 80053; 84550; 85025

== ENCOUNTER 2020-05-28 10:19 | Outpatient (RCR) | payer MEDICARE, OTHER, SELFPAY ==
[2020-05-28] MEDS: COVID-19 VACC, MRNA(PFIZER)/PF 30 MCG/0.3 ML SYRINGE IM (18:46)
[2020-06-18] MEDS: COVID-19 VACC, MRNA(PFIZER)/PF 30 MCG/0.3 ML SYRINGE IM (18:31)
== END 2020-05-28 23:59 ==
LOC: IMMUN 10:19
PROVIDERS: PCP Family Medicine; Referring Provider Family Medicine; Visit Provider Family Medicine
DX: Z23 Encounter for immunization (principal)
CPT/HCPCS: 0001A; 0002A; 91300

== ENCOUNTER → 2020-11-27 11:14 | Outpatient (CLI) | payer MEDICARE, OTHER, SELFPAY | PROVIDERS: PCP Family Medicine; Referring Provider Internal Medicine Rheumatology; Visit Provider Internal Medicine Rheumatology | DX: Z00.00 Encounter for general adult medical examination without abnormal findings (principal) ==

== ENCOUNTER → 2020-11-28 11:01 | Outpatient (CLI) | payer MEDICARE, OTHER, SELFPAY ==
[2020-11-28 12:00] LABS: Absolute Lymphocyte Count 1.37 X10^3/uL (0.83-4.51); Basophil# 0.04 X10^3/uL; Basophil% 0.7 % (0-1); Eosinophil# 0.14 X10^3/uL; Eosinophils% 2.3 % (0-5); Hematocrit 42.7 % (40-54); Hemoglobin 14.6 g/dL (13.0-16.5); Lymphocyte # 1.37 X10^3/ul (0.83-4.51); Lymphocyte % 22.6 % (19-41); Mean Corp Hgb Conc 34.2 g/dL (32-36); Mean Corpuscular Hgb 30.5 pg (27.0-32.0); Mean Corpuscular Volume 89.3 fL (80-94); Mean Platelet Vol. 10.7 fl (6.2-12.0); Monocyte# 0.43 X10^3/uL; Monocyte% 7.1 % (0-10); NRBC Flagged by Analyzer 0 % (0-5); Neutrophil # 4.04 X10^3/uL (2.7-7.7); Neutrophil % 66.8 % (47-70); Platelet Count 210 K/mm3 (150-450); RBC Distribution Width CV 12.7 % (11.6-14.6); RBC Distribution Width SD 41.6 fl (35.1-43.9); Red Blood Count 4.78 M/mm3 (4.6-6.2); White Blood Count 6.1 K/mm3 (4.4-11.0)
[2020-11-28 12:28] LABS: ALB/GLOB Ratio 0.9 RATIO (0.9-2.4); AST(SGOT) 37 U/L (15-37); Alanine Aminotransfer ALT/SGPT 44 U/L (16-61); Albumin, Serum 3.5 g/dL (3.2-5.0); Alkaline Phosphatase 87 U/L (45-117); Anion Gap 6 (5-15); BUN 20 mg/dL (7-18); BUN/Creat Ratio 18.7 RATIO (10-20); Calcium,Total 8.7 mg/dL (8.5-10.1); Chloride 107 mmol/L (98-107); Creatinine, Serum 1.07 mg/dL (0.70-1.30); EST Glomerular Filtration Rate 73 mL/min (>60); Est Glom Filt Rate - Afr Amer 89 mL/min (>60); Globulin 3.7 g/dL (2.2-4.2); Glucose 114 mg/dL (74-106); Potassium 4.1 mmol/L (3.5-5.1); Protein, Total 7.2 g/dL (6.4-8.2); Sodium Level 138 mmol/L (136-145)
== END ==
PROVIDERS: PCP Family Medicine; Referring Provider Internal Medicine Rheumatology; Visit Provider Internal Medicine Rheumatology
DX: M06.4 Inflammatory polyarthropathy (principal); M10.9 Gout, unspecified; M18.0 Bilateral primary osteoarthritis of first carpometacarpal joints; K90.0 Celiac disease; J30.89 Other allergic rhinitis; K76.0 Fatty (change of) liver, not elsewhere classified
CPT/HCPCS: 36415; 80053; 84550; 85025

== ENCOUNTER 2021-05-25 16:43 | Outpatient (CLI) | payer MEDICARE, OTHER, SELFPAY ==
[2021-05-25 17:16] LABS: Absolute Lymphocyte Count 1.81 X10^3/uL (0.83-4.51); Absolute Neutrophil Count 3.7 X10^3/uL (2.0-7.7); Basophil# 0.06 X10^3/uL; Basophil% 0.9 % (0-1); Eosinophil# 0.16 X10^3/uL; Eosinophils% 2.5 % (0-5); Hematocrit 42.3 % (40-54); Hemoglobin 14.5 g/dL (13.0-16.5); Lymphocyte # 1.81 X10^3/ul (0.83-4.51); Lymphocyte % 28.5 % (19-41); Mean Corp Hgb Conc 34.3 g/dL (32-36); Mean Corpuscular Hgb 30.1 pg (27.0-32.0); Mean Corpuscular Volume 87.9 fL (80-94); Mean Platelet Vol. 10.9 fl (6.2-12.0); Monocyte# 0.59 X10^3/uL; Monocyte% 9.3 % (0-10); NRBC Flagged by Analyzer 0 % (0-5); Neutrophil % 58.5 % (47-70); Platelet Count 235 K/mm3 (150-450); RBC Distribution Width SD 41.9 fl (35.1-43.9); Red Blood Count 4.81 M/mm3 (4.6-6.2); White Blood Count 6.3 K/mm3 (4.4-11.0)
[2021-05-25 17:56] LABS: ALB/GLOB Ratio 0.9 RATIO (0.9-2.4); AST(SGOT) 58 U/L (15-37); Alanine Aminotransfer ALT/SGPT 53 U/L (16-61); Albumin, Serum 3.6 g/dL (3.2-5.0); Alkaline Phosphatase 95 U/L (45-117); Anion Gap 3 (5-15); BUN 19 mg/dL (7-18); BUN/Creat Ratio 13.5 RATIO (10-20); CRP 4.98 mg/L (0.0-3.0); Calcium,Total 8.7 mg/dL (8.5-10.1); Chloride 103 mmol/L (98-107); Creatinine, Serum 1.41 mg/dL (0.70-1.30); EST Glomerular Filtration Rate 53 mL/min (>60); Est Glom Filt Rate - Afr Amer 64 mL/min (>60); Globulin 4.1 g/dL (2.2-4.2); Glucose 104 mg/dL (74-106); Potassium 4.5 mmol/L (3.5-5.1); Protein, Total 7.7 g/dL (6.4-8.2); Sodium Level 135 mmol/L (136-145); Uric Acid 5.2 mg/dL (3.5-7.2)
[2021-05-25 18:21] LABS: Erythrocyte Sedimentation Rate 13 mm/hr (0-20)
== END 2021-05-25 23:59 | disposition home or self-care (01) ==
LOC: LAB 16:45
PROVIDERS: PCP Family Medicine; Visit Provider Internal Medicine Rheumatology
DX: M06.4 Inflammatory polyarthropathy (principal); M10.9 Gout, unspecified; M18.0 Bilateral primary osteoarthritis of first carpometacarpal joints; K90.0 Celiac disease; J30.89 Other allergic rhinitis; K76.0 Fatty (change of) liver, not elsewhere classified
CPT/HCPCS: 36415; 80053; 84550; 85025; 85652; 86140

== ENCOUNTER 2021-07-15 09:15 | Outpatient (CLI) | payer MEDICARE, OTHER, SELFPAY ==
--- NOTE | 2021-07-15 09:18 | US_ITS ---
INDICATION: SCREENING EXAMINATION: Ultrasound US AAA Aneurysm Screening TECHNIQUE: Coronel scale and color doppler imaging was obtained of the abdominal aorta. COMPARISON: None. FINDINGS: Atherosclerotic disease visualized in the abdominal aorta, no evidence of aneurysmal dilatation or arterial dissection is seen. The abdominal aorta measures 1.5 x 1.2 cm proximally, 1.5 x 1.3 cm in its mid segment and 1.5 x 1.2 cm distally. Proximal common Iliac vessels demonstrate atherosclerotic disease but no evidence of aneurysmal dilatation or arterial dissection. The right common iliac artery measures 1.0 cm, the proximal left common iliac artery measures 0.9 cm. US/Aorta IMPRESSION: No sonographic evidence of abdominal aortic aneurysm. Electronically Signed: Saravanan Croft MD at 11:33 EDT ,
== END 2021-07-15 23:59 | disposition home or self-care (01) ==
LOC: US 09:16
PROVIDERS: PCP Family Medicine; Referring Provider Family Medicine; Visit Provider Family Medicine
DX: Z13.6 Encounter for screening for cardiovascular disorders (principal); Z87.891 Personal history of nicotine dependence
CPT/HCPCS: 76775

== ENCOUNTER 2021-09-13 13:15 | Outpatient (CLI) | payer MEDICARE, OTHER, SELFPAY ==
[2021-09-13 13:23] LABS: Pathologist Comment May follow
[2021-09-13 13:50] LABS: CRYSTALS, BODY FLUID See PATH REV; Source- Body Fluid SYNOVIAL
[2021-09-13 13:51] LABS: Appearance /Synovial Fluid Hazy (CLEAR); Color / Synovial Fluid Yellow (Pale Yellow); Source / Synovial Fluid RT KNEE
[2021-09-13 13:53] LABS: AUTO B FLUID DILUENT BKGD CT WBC <0.1 RBC <0.01 (W<.1,R<.01)
[2021-09-13 13:55] LABS: Synovial Fld Mononuclear WBC # 0.202 10^3/ul; Synovial Fld Mononuclear WBC % 93.1 %; Synovial Fld Polynuclear WBC # 0.015 10^3/uL; Synovial Fld Polynuclear WBC % 6.9 %
[2021-09-13 14:50] LABS: Lymph 25 %; Monocyte /Synovial Fluid 16 %; Neutrophil 6 % (0-25); Other Cell /Synovial Fluid 53 %
[2021-09-13 14:51] LABS: Body Fluid QC Type(s) BF1Q,BF2Q; RBC /Synovial Fluid 1252 /mm3 (0)
[2021-09-14 13:38] LABS: Pathologist Review Reviewed
== END 2021-09-13 23:59 | disposition home or self-care (01) ==
LOC: LABSPEC 13:17
PROVIDERS: PCP Family Medicine; Visit Provider Internal Medicine Rheumatology
DX: M06.4 Inflammatory polyarthropathy (principal); M10.9 Gout, unspecified; M18.0 Bilateral primary osteoarthritis of first carpometacarpal joints; M17.0 Bilateral primary osteoarthritis of knee; K90.0 Celiac disease; J30.89 Other allergic rhinitis; K76.0 Fatty (change of) liver, not elsewhere classified
CPT/HCPCS: 87070; 87075; 87205; 89050; 89051; 89060

== ENCOUNTER → 2021-10-11 | Outpatient (CLI) | payer MEDICARE, OTHER, SELFPAY ==
[2021-10-11 15:03] LABS: Absolute Lymphocyte Count 1.53 X10^3/uL (0.83-4.51); Absolute Neutrophil Count 4.6 X10^3/uL (2.0-7.7); Basophil# 0.04 X10^3/uL; Basophil% 0.6 % (0-1); Eosinophil# 0.16 X10^3/uL; Eosinophils% 2.3 % (0-5); Hematocrit 42.5 % (40-54); Hemoglobin 14.2 g/dL (13.0-16.5); Lymphocyte # 1.53 X10^3/ul (0.83-4.51); Lymphocyte % 22.1 % (19-41); Mean Corp Hgb Conc 33.4 g/dL (32-36); Mean Corpuscular Hgb 30.1 pg (27.0-32.0); Mean Platelet Vol. 11.2 fl (6.2-12.0); Monocyte# 0.55 X10^3/uL; NRBC Flagged by Analyzer 0 % (0-5); Neutrophil # 4.58 X10^3/uL (2.7-7.7); Neutrophil % 66.3 % (47-70); Platelet Count 228 K/mm3 (150-450); RBC Distribution Width CV 13.1 % (11.6-14.6); RBC Distribution Width SD 43.2 fl (35.1-43.9); Red Blood Count 4.72 M/mm3 (4.6-6.2); White Blood Count 6.9 K/mm3 (4.4-11.0)
[2021-10-11 16:10] LABS: AST(SGOT) 32 U/L (15-37); Alanine Aminotransfer ALT/SGPT 39 U/L (16-61); Albumin, Serum 3.5 g/dL (3.2-5.0); Alkaline Phosphatase 82 U/L (45-117); Anion Gap 8 (5-15); BUN 13 mg/dL (7-18); BUN/Creat Ratio 12.6 RATIO (10-20); Calcium,Total 8.7 mg/dL (8.5-10.1); Chloride 105 mmol/L (98-107); Cholesterol 208 mg/dL (200); Creatinine, Serum 1.03 mg/dL (0.70-1.30); EST Glomerular Filtration Rate 76 mL/min (>60); Est Glom Filt Rate - Afr Amer 92 mL/min (>60); Globulin 3.5 g/dL (2.2-4.2); Glucose 134 mg/dL (74-106); High Density Lipoprotein 34 mg/dL; Potassium 3.9 mmol/L (3.5-5.1); Sodium Level 138 mmol/L (136-145); Thyroid Stim Hormone (TSH) 3.81 uIU/mL (0.358-3.74); Triglycerides 284 mg/dL; Uric Acid 4.6 mg/dL (3.5-7.2); Very Low Density Lipoprotein 57 mg/dL (5-40)
== END | disposition home or self-care (01) ==
LOC: LAB 13:22
PROVIDERS: PCP Family Medicine; Visit Provider Family Medicine
DX: M06.4 Inflammatory polyarthropathy (principal); M10.9 Gout, unspecified; M18.0 Bilateral primary osteoarthritis of first carpometacarpal joints; M17.0 Bilateral primary osteoarthritis of knee; K90.0 Celiac disease; J30.89 Other allergic rhinitis; K76.0 Fatty (change of) liver, not elsewhere classified; E03.9 Hypothyroidism, unspecified; E78.5 Hyperlipidemia, unspecified; Z12.5 Encounter for screening for malignant neoplasm of prostate
CPT/HCPCS: 36415; 80053; 80061; 84153; 84443; 84550; 85025; G0103

== ENCOUNTER → 2022-04-01 | Outpatient (CLI) | payer MEDICARE, OTHER, SELFPAY ==
[2022-04-01 15:42] LABS: Absolute Lymphocyte Count 2.42 X10^3/uL (0.83-4.51); Absolute Neutrophil Count 3.3 X10^3/uL (2.0-7.7); Basophil# 0.06 X10^3/uL; Basophil% 0.9 % (0-1); Eosinophils% 2.9 % (0-5); Hematocrit 43.9 % (40-54); Hemoglobin 14.6 g/dL (13.0-16.5); Lymphocyte # 2.42 X10^3/ul (0.83-4.51); Lymphocyte % 35.5 % (19-41); Mean Corp Hgb Conc 33.3 g/dL (32-36); Mean Corpuscular Volume 90.1 fL (80-94); Mean Platelet Vol. 10.9 fl (6.2-12.0); Monocyte# 0.77 X10^3/uL; Monocyte% 11.3 % (0-10); NRBC Flagged by Analyzer 0 % (0-5); Neutrophil # 3.34 X10^3/uL (2.7-7.7); Platelet Count 255 K/mm3 (150-450); RBC Distribution Width SD 42.6 fl (35.1-43.9); Red Blood Count 4.87 M/mm3 (4.6-6.2); White Blood Count 6.8 K/mm3 (4.4-11.0)
[2022-04-01 16:10] LABS: ALB/GLOB Ratio 1.1 RATIO (0.9-2.4); AST(SGOT) 46 U/L (15-37); Alanine Aminotransfer ALT/SGPT 52 U/L (16-61); Albumin, Serum 3.8 g/dL (3.2-5.0); Alkaline Phosphatase 99 U/L (45-117); Anion Gap 3 (5-15); BUN 17 mg/dL (7-18); BUN/Creat Ratio 15.3 RATIO (10-20); Calcium,Total 9.1 mg/dL (8.5-10.1); Chloride 106 mmol/L (98-107); Creatinine, Serum 1.11 mg/dL (0.70-1.30); EST Glomerular Filtration Rate 70 mL/min (>60); Est Glom Filt Rate - Afr Amer 85 mL/min (>60); Globulin 3.6 g/dL (2.2-4.2); Glucose 99 mg/dL (74-106); Potassium 3.8 mmol/L (3.5-5.1); Protein, Total 7.4 g/dL (6.4-8.2); Sodium Level 138 mmol/L (136-145); Uric Acid 5.4 mg/dL (3.5-7.2)
== END | disposition home or self-care (01) ==
LOC: LAB 14:48
PROVIDERS: PCP Family Medicine; Visit Provider Internal Medicine Rheumatology
DX: Z79.899 Other long term (current) drug therapy (principal); M06.4 Inflammatory polyarthropathy; M10.9 Gout, unspecified; M18.0 Bilateral primary osteoarthritis of first carpometacarpal joints; M17.0 Bilateral primary osteoarthritis of knee; K90.0 Celiac disease; J30.89 Other allergic rhinitis; K76.0 Fatty (change of) liver, not elsewhere classified
CPT/HCPCS: 36415; 80053; 84550; 85025

== ENCOUNTER → 2022-09-23 | Outpatient (CLI) | payer MEDICARE, OTHER, SELFPAY ==
[2022-09-23 13:22] LABS: Absolute Lymphocyte Count 1.63 X10^3/uL (0.83-4.51); Absolute Neutrophil Count 3.2 X10^3/uL (2.0-7.7); Basophil# 0.04 X10^3/uL; Basophil% 0.7 % (0-1); Eosinophil# 0.11 X10^3/uL; Hematocrit 43.7 % (40-54); Hemoglobin 14.9 g/dL (13.0-16.5); Lymphocyte # 1.63 X10^3/ul (0.83-4.51); Lymphocyte % 30.2 % (19-41); Mean Corp Hgb Conc 34.1 g/dL (32-36); Mean Corpuscular Hgb 30.5 pg (27.0-32.0); Mean Corpuscular Volume 89.5 fL (80-94); Mean Platelet Vol. 11.4 fl (6.2-12.0); Monocyte# 0.45 X10^3/uL; Monocyte% 8.3 % (0-10); NRBC Flagged by Analyzer 0 % (0-5); Neutrophil # 3.16 X10^3/uL (2.7-7.7); Neutrophil % 58.6 % (47-70); Platelet Count 220 K/mm3 (150-450); RBC Distribution Width CV 13.1 % (11.6-14.6); RBC Distribution Width SD 42.8 fl (35.1-43.9); Red Blood Count 4.88 M/mm3 (4.6-6.2); White Blood Count 5.4 K/mm3 (4.4-11.0)
[2022-09-23 14:00] LABS: ALB/GLOB Ratio 1.1 RATIO (0.9-2.4); AST(SGOT) 49 U/L (15-37); Alanine Aminotransfer ALT/SGPT 52 U/L (16-61); Albumin, Serum 3.8 g/dL (3.2-5.0); Alkaline Phosphatase 97 U/L (45-117); Anion Gap 7 (5-15); BUN 19 mg/dL (7-18); BUN/Creat Ratio 15.2 RATIO (10-20); Calcium,Total 9.1 mg/dL (8.5-10.1); Chloride 105 mmol/L (98-107); Cholesterol 207 mg/dL (200); Creatinine, Serum 1.25 mg/dL (0.70-1.30); EST Glomerular Filtration Rate 61 mL/min (>60); Est Glom Filt Rate - Afr Amer 74 mL/min (>60); Globulin 3.5 g/dL (2.2-4.2); Glucose 87 mg/dL (74-106); High Density Lipoprotein 34 mg/dL; Potassium 3.9 mmol/L (3.5-5.1); Protein, Total 7.3 g/dL (6.4-8.2); Sodium Level 139 mmol/L (136-145); T4 Free Direct 0.86 ng/dL (0.76-1.46); Thyroid Stim Hormone (TSH) 2.51 uIU/mL (0.358-3.74); Triglycerides 227 mg/dL; Uric Acid 5.3 mg/dL (3.5-7.2); Very Low Density Lipoprotein 45 mg/dL (5-40)
== END | disposition home or self-care (01) ==
LOC: LAB 12:15
PROVIDERS: PCP Family Medicine; Referring Provider Internal Medicine Rheumatology; Visit Provider Internal Medicine Rheumatology
DX: E78.5 Hyperlipidemia, unspecified (principal); E03.9 Hypothyroidism, unspecified
CPT/HCPCS: 36415; 80053; 80061; 84439; 84443; 84550; 85025

== ENCOUNTER → 2023-03-29 | Outpatient (CLI) | payer MEDICARE, SELFPAY ==
[2023-03-29 13:28] LABS: Absolute Lymphocyte Count 1.63 X10^3/uL (0.83-4.51); Absolute Neutrophil Count 3.8 X10^3/uL (2.0-7.7); Basophil# 0.06 X10^3/uL; Eosinophil# 0.16 X10^3/uL; Eosinophils% 2.6 % (0-5); Hematocrit 42.2 % (40-54); Hemoglobin 13.8 g/dL (13.0-16.5); Lymphocyte # 1.63 X10^3/ul (0.83-4.51); Lymphocyte % 26.2 % (19-41); Mean Corp Hgb Conc 32.7 g/dL (32-36); Mean Corpuscular Hgb 29.3 pg (27.0-32.0); Mean Corpuscular Volume 89.6 fL (80-94); Mean Platelet Vol. 10.9 fl (6.2-12.0); Monocyte# 0.56 X10^3/uL; NRBC Flagged by Analyzer 0 % (0-5); Neutrophil # 3.77 X10^3/uL (2.7-7.7); Neutrophil % 60.7 % (47-70); Platelet Count 263 K/mm3 (150-450); RBC Distribution Width SD 42.2 fl (35.1-43.9); Red Blood Count 4.71 M/mm3 (4.6-6.2); White Blood Count 6.2 K/mm3 (4.4-11.0)
[2023-03-29 13:55] LABS: ALB/GLOB Ratio 1.1 RATIO (0.9-2.4); AST(SGOT) 45 U/L (15-37); Alanine Aminotransfer ALT/SGPT 43 U/L (16-61); Albumin, Serum 3.8 g/dL (3.2-5.0); Alkaline Phosphatase 96 U/L (45-117); Anion Gap 5 (5-15); BUN 18 mg/dL (7-18); BUN/Creat Ratio 15.9 RATIO (10-20); Chloride 105 mmol/L (98-107); Creatinine, Serum 1.13 mg/dL (0.70-1.30); EST Glomerular Filtration Rate 68 mL/min (>60); Est Glom Filt Rate - Afr Amer 83 mL/min (>60); Globulin 3.4 g/dL (2.2-4.2); Glucose 112 mg/dL (74-106); Potassium 4.3 mmol/L (3.5-5.1); Protein, Total 7.2 g/dL (6.4-8.2); Sodium Level 138 mmol/L (136-145); Uric Acid 5.1 mg/dL (3.5-7.2)
== END | disposition home or self-care (01) ==
PROVIDERS: PCP Family Medicine; Referring Provider Internal Medicine Rheumatology; Visit Provider Internal Medicine Rheumatology
DX: M06.4 Inflammatory polyarthropathy (principal); Z79.899 Other long term (current) drug therapy; M10.9 Gout, unspecified; K90.0 Celiac disease; K76.0 Fatty (change of) liver, not elsewhere classified
CPT/HCPCS: 36415; 80053; 84550; 85025

== ENCOUNTER → 2023-07-06 | Outpatient (CLI) | payer MEDICARE, SELFPAY ==
[2023-07-06 16:18] LABS: PSA,Total - Annual Screen 1.11 ng/mL (0.00-4.00)
[2023-07-06 17:23] LABS: Vitamin B12 267 pg/mL (211-911); Vitamin D,25 Hydroxy 37.8 ng/mL
== END | disposition home or self-care (01) ==
LOC: BFHLAB 11:49
PROVIDERS: PCP Family Medicine; Visit Provider Family Medicine
DX: E55.9 Vitamin D deficiency, unspecified (principal); K90.0 Celiac disease; Z12.5 Encounter for screening for malignant neoplasm of prostate
CPT/HCPCS: 36415; 82306; 82607; 84153; G0103

== ENCOUNTER → 2023-09-25 | Outpatient (CLI) | payer MEDICARE, SELFPAY ==
[2023-09-25 14:36] LABS: Absolute Lymphocyte Count 2.25 X10^3/uL (0.83-4.51); Absolute Neutrophil Count 6.5 X10^3/uL (2.0-7.7); Basophil# 0.06 X10^3/uL; Basophil% 0.6 % (0-1); Eosinophil# 0.05 X10^3/uL; Eosinophils% 0.5 % (0-5); Hematocrit 43.2 % (40-54); Hemoglobin 14.4 g/dL (13.0-16.5); Lymphocyte # 2.25 X10^3/ul (0.83-4.51); Lymphocyte % 23.1 % (19-41); Mean Corp Hgb Conc 33.3 g/dL (32-36); Mean Corpuscular Hgb 29.9 pg (27.0-32.0); Mean Corpuscular Volume 89.6 fL (80-94); Monocyte# 0.88 X10^3/uL; NRBC Flagged by Analyzer 0 % (0-5); Neutrophil # 6.46 X10^3/uL (2.7-7.7); Neutrophil % 66.2 % (47-70); Platelet Count 244 K/mm3 (150-450); RBC Distribution Width CV 13.1 % (11.6-14.6); RBC Distribution Width SD 42.5 fl (35.1-43.9); Red Blood Count 4.82 M/mm3 (4.6-6.2); White Blood Count 9.8 K/mm3 (4.4-11.0)
[2023-09-25 15:11] LABS: ALB/GLOB Ratio 1.1 RATIO (0.9-2.4); AST(SGOT) 29 U/L (15-37); Alanine Aminotransfer ALT/SGPT 44 U/L (16-61); Albumin, Serum 3.6 g/dL (3.2-5.0); Alkaline Phosphatase 92 U/L (45-117); Anion Gap 6 (5-15); BUN 17 mg/dL (7-18); BUN/Creat Ratio 15.2 RATIO (10-20); CRP < 2.90 mg/L (0.0-3.0); Calcium,Total 8.8 mg/dL (8.5-10.1); Chloride 105 mmol/L (98-107); Creatinine, Serum 1.12 mg/dL (0.70-1.30); EST Glomerular Filtration Rate 69 mL/min (>60); Est Glom Filt Rate - Afr Amer 83 mL/min (>60); Globulin 3.4 g/dL (2.2-4.2); Glucose 102 mg/dL (74-106); Potassium 3.4 mmol/L (3.5-5.1); Sodium Level 137 mmol/L (136-145); Uric Acid 5.1 mg/dL (3.5-7.2)
[2023-09-27 16:10] LABS: Endomysial Antibody IgA Negative (Negative); Immunoglobulin A 257 mg/dL (61-437); t-Transglutaminase IgA <2 U/mL (0-3)
== END | disposition home or self-care (01) ==
PROVIDERS: PCP Family Medicine; Referring Provider Internal Medicine Rheumatology; Visit Provider Internal Medicine Rheumatology
DX: M06.4 Inflammatory polyarthropathy (principal); Z79.899 Other long term (current) drug therapy; K90.0 Celiac disease
CPT/HCPCS: 36415; 80053; 82784; 83516; 84550; 85025; 86140; 86255

== ENCOUNTER 2024-01-30 23:32 | Emergency (ER) | payer MEDICARE, SELFPAY ==
[2024-01-30 23:33] VITALS: BP 151/96; PULSE 123; RESP 18; TEMP 36.4; O2SAT 97; BMI 30.7
[2024-01-31] MEDS: 0.9% Normal Saline (1000mL) 1,000 ML 999 ML IV (00:10)
[2024-01-31] MEDS: Morphine 4 MG/ML Syringe IV (00:11)
[2024-01-31] MEDS: Ondansetron 4 MG/2 ML Vial IV (00:13)
[2024-01-31 00:27] LABS: Absolute Lymphocyte Count 1.05 X10^3/uL (0.83-4.51); Absolute Neutrophil Count 13.3 X10^3/uL (2.0-7.7); Basophil# 0.04 X10^3/uL; Basophil% 0.3 % (0-1); Eosinophil# 0.03 X10^3/uL; Eosinophils% 0.2 % (0-5); Hematocrit 45.6 % (40-54); Hemoglobin 15.7 g/dL (13.0-16.5); Lymphocyte # 1.05 X10^3/ul (0.83-4.51); Lymphocyte % 6.9 % (19-41); Mean Corp Hgb Conc 34.4 g/dL (32-36); Mean Corpuscular Hgb 30.4 pg (27.0-32.0); Mean Corpuscular Volume 88.2 fL (80-94); Mean Platelet Vol. 10.7 fl (6.2-12.0); Monocyte# 0.68 X10^3/uL; Monocyte% 4.5 % (0-10); NRBC Flagged by Analyzer 0 % (0-5); Neutrophil % 87.5 % (47-70); Platelet Count 269 K/mm3 (150-450); RBC Distribution Width CV 13.2 % (11.6-14.6); RBC Distribution Width SD 42.5 fl (35.1-43.9); Red Blood Count 5.17 M/mm3 (4.6-6.2); White Blood Count 15.2 K/mm3 (4.4-11.0)
[2024-01-31 00:45] LABS: AST(SGOT) 33 U/L (15-37); Alanine Aminotransfer ALT/SGPT 41 U/L (16-61); Albumin, Serum 3.9 g/dL (3.2-5.0); Alkaline Phosphatase 90 U/L (45-117); Anion Gap 6 (5-15); BUN 16 mg/dL (7-18); BUN/Creat Ratio 13.6 RATIO (10-20); Bilirubin, Direct 0.18 mg/dL (0.00-0.30); Calcium,Total 9.5 mg/dL (8.5-10.1); Chloride 103 mmol/L (98-107); Creatinine, Serum 1.18 mg/dL (0.70-1.30); EST Glomerular Filtration Rate 65 mL/min (>60); Est Glom Filt Rate - Afr Amer 78 mL/min (>60); Estimated Creatinine Clearance 72.24 ml/min; Globulin 3.5 g/dL (2.2-4.2); Glucose 145 mg/dL (74-106); Lipase 41 U/L (13-75); Potassium 3.7 mmol/L (3.5-5.1); Protein, Total 7.4 g/dL (6.4-8.2); Sodium Level 139 mmol/L (136-145)
[2024-01-31] MEDS: HYDROmorphone 0.5 MG/0.5 ML SYRINGE IV (01:02)
[2024-01-31 01:29] LABS: Lactic Acid 1.3 mmol/L (0.4-1.9)
[2024-01-31 01:32] VITALS: BP 151/88; PULSE 99; RESP 18; O2SAT 96
[2024-01-31 03:00] VITALS: BP 137/87; PULSE 99; RESP 16; O2SAT 93
[2024-01-31 04:11] VITALS: BP 137/83; PULSE 112; RESP 18; TEMP 36.7; O2SAT 96
[2024-01-31] MEDS: oxyCODONE 5 MG Tablet PO (04:17)
== END 2024-01-31 04:20 | disposition home or self-care (01) ==
PROVIDERS: Emergency Provider Emergency Medicine; PCP Family Medicine; Visit Provider Emergency Medicine
DX: E03.9 Hypothyroidism, unspecified (principal); Z87.891 Personal history of nicotine dependence; K90.0 Celiac disease; K29.80 Duodenitis without bleeding; K40.90 Unilateral inguinal hernia, without obstruction or gangrene, not specified as recurrent; Z79.890 Hormone replacement therapy
CPT/HCPCS: 74177; 80048; 80076; 83605; 83690; 85025; 96361; 96374; 96375; 99284; J7030; Q9967; A4216; J2405

== ENCOUNTER 2024-02-06 14:48 | Outpatient (CLI) | payer MEDICARE, SELFPAY ==
[2024-02-06 15:28] LABS: Pathologist Comment May follow
[2024-02-06 15:50] LABS: Source- Body Fluid SYNOVIAL
[2024-02-06 15:52] LABS: Source / Synovial Fluid L KNEE
[2024-02-06 15:53] LABS: Appearance /Synovial Fluid Hazy (CLEAR); Color / Synovial Fluid Straw (Pale Yellow)
[2024-02-06 16:05] LABS: CRYSTALS, BODY FLUID NO CRYSTALS SEEN
[2024-02-06 16:06] LABS: Synovial Fld Mononuclear WBC # 0.058 10^3/ul; Synovial Fld Polynuclear WBC # 0.011 10^3/uL
[2024-02-06 17:16] LABS: AUTO B FLUID DILUENT BKGD CT WBC <0.1 RBC <0.01 (W<.1,R<.01); RBC /Synovial Fluid 543 /mm3 (0)
[2024-02-06 19:30] LABS: Body Fluid QC Type(s) BF1Q,BF2Q
[2024-02-06 19:43] LABS: Lymph 3 %; Monocyte /Synovial Fluid 0 %; Neutrophil 24 % (0-25); Other Cell /Synovial Fluid 73 %; Plasma Cell /Synovial Fluid 0 %
[2024-02-07 09:43] LABS: Pathologist Review Reviewed
== END 2024-02-06 23:59 | disposition home or self-care (01) ==
LOC: LABSPEC 14:51
PROVIDERS: PCP Family Medicine; Referring Provider Internal Medicine Rheumatology; Visit Provider Internal Medicine Rheumatology
DX: M06.4 Inflammatory polyarthropathy (principal); M25.562 Pain in left knee
CPT/HCPCS: 87070; 87075; 87205; 89050; 89051; 89060

== ENCOUNTER → 2024-03-11 | Outpatient (CLI) | payer MEDICARE, SELFPAY ==
--- NOTE | 2024-03-11 14:55 | RAD_ITS ---
STUDY: X-RAY - RIGHT KNEE REASON FOR EXAM: Male, 68 years old. INFLAMMATORY POLYARTHROPATHY KNEE PAIN TECHNIQUE: 4 views of the right knee. COMPARISON: Right knee radiographs dated 11/13/2019. FINDINGS: Normal visualized distal femur. Normal visualized proximal tibia and fibula. Normal proximal tibiofibular articulation. There is no demonstrated fracture. Normal medial femorotibial compartment. Normal lateral femorotibial compartment. Normal patellofemoral articulation. There is a persistent small to moderate right knee joint effusion. There are atherosclerotic calcifications. RAD/Knee 4 or More Views IMPRESSION: Persistent small to moderate right knee joint effusion. No demonstrated fracture. Electronically Signed: Iraj Hawkins MD at 14:43 EST ,
--- NOTE | 2024-03-11 14:55 | RAD_ITS ---
STUDY: X-RAY - LEFT KNEE REASON FOR EXAM: Male, 68 years old. INFLAMMATORY POLYARTHROPATHY KNEE PAIN TECHNIQUE: 4 views of the left knee. COMPARISON: None. FINDINGS: Normal visualized distal femur. Normal visualized proximal tibia and fibula. Normal proximal tibiofibular articulation. There is no demonstrated fracture. There is moderate degenerative arthrosis of the medial femorotibial compartment with moderate joint space narrowing. There is mild degenerative arthrosis of the lateral femorotibial compartment. There is mild degenerative arthrosis of the patellofemoral articulation. There is a moderate joint effusion. There are atherosclerotic calcifications. RAD/Knee 4 or More Views IMPRESSION: Tricompartment degenerative arthrosis, most pronounced in the medial femorotibial compartment. Moderate joint effusion. No demonstrated fracture. Electronically Signed: Iraj Hawkins MD at 14:27 EST ,
== END | disposition home or self-care (01) ==
LOC: RAD 14:39
PROVIDERS: PCP Family Medicine; Referring Provider Internal Medicine Rheumatology; Visit Provider Internal Medicine Rheumatology
DX: M06.4 Inflammatory polyarthropathy (principal)
CPT/HCPCS: 73564

== ENCOUNTER → 2024-03-12 | Outpatient (CLI) | payer MEDICARE, SELFPAY ==
[2024-03-12 09:27] LABS: Absolute Lymphocyte Count 2.22 X10^3/uL (0.83-4.51); Absolute Neutrophil Count 4.6 X10^3/uL (2.0-7.7); Basophil# 0.08 X10^3/uL; Eosinophils% 2.5 % (0-5); Hematocrit 42.9 % (40-54); Hemoglobin 14.4 g/dL (13.0-16.5); Lymphocyte # 2.22 X10^3/ul (0.83-4.51); Lymphocyte % 28.3 % (19-41); Mean Corp Hgb Conc 33.6 g/dL (32-36); Mean Corpuscular Hgb 30.2 pg (27.0-32.0); Mean Corpuscular Volume 89.9 fL (80-94); Mean Platelet Vol. 10.4 fl (6.2-12.0); Monocyte# 0.65 X10^3/uL; Monocyte% 8.3 % (0-10); NRBC Flagged by Analyzer 0 % (0-5); Neutrophil # 4.64 X10^3/uL (2.7-7.7); Neutrophil % 59.1 % (47-70); Platelet Count 265 K/mm3 (150-450); RBC Distribution Width CV 13.7 % (11.6-14.6); RBC Distribution Width SD 44.8 fl (35.1-43.9); Red Blood Count 4.77 M/mm3 (4.6-6.2); White Blood Count 7.9 K/mm3 (4.4-11.0)
[2024-03-12 09:59] LABS: AST(SGOT) 33 U/L (15-37); Alanine Aminotransfer ALT/SGPT 40 U/L (16-61); Albumin, Serum 3.4 g/dL (3.2-5.0); Alkaline Phosphatase 105 U/L (45-117); Anion Gap 4 (5-15); BUN 17 mg/dL (7-18); BUN/Creat Ratio 15.2 RATIO (10-20); Calcium,Total 8.7 mg/dL (8.5-10.1); Chloride 104 mmol/L (98-107); Creatinine, Serum 1.12 mg/dL (0.70-1.30); EST Glomerular Filtration Rate 69 mL/min (>60); Est Glom Filt Rate - Afr Amer 83 mL/min (>60); Globulin 3.5 g/dL (2.2-4.2); Glucose 99 mg/dL (74-106); Potassium 3.9 mmol/L (3.5-5.1); Protein, Total 6.9 g/dL (6.4-8.2); Sodium Level 138 mmol/L (136-145); Uric Acid 4.3 mg/dL (3.5-7.2)
[2024-03-12 10:07] LABS: Cholesterol 167 mg/dL (200); High Density Lipoprotein 35 mg/dL; Triglycerides 185 mg/dL; Very Low Density Lipoprotein 37 mg/dL (5-40)
== END | disposition home or self-care (01) ==
LOC: LAB.FUTURE 08:58
PROVIDERS: Internal Medicine Rheumatology; PCP Family Medicine; Referring Provider Family Medicine; Visit Provider Family Medicine
DX: E03.9 Hypothyroidism, unspecified (principal); M06.4 Inflammatory polyarthropathy; E78.5 Hyperlipidemia, unspecified; Z79.899 Other long term (current) drug therapy; M10.9 Gout, unspecified
CPT/HCPCS: 36415; 80053; 80061; 84443; 84550; 85025

== ENCOUNTER → 2024-04-30 | Outpatient (CLI) | payer MEDICARE, SELFPAY ==
--- NOTE | 2024-04-30 13:44 | EKG12_ITS ---
Test Reason : PRE OP Blood Pressure : */* mmHG Vent. Rate : 78 BPM Atrial Rate : 78 BPM P-R Int : 144 ms QRS Dur : 78 ms QT Int : 364 ms P-R-T Axes : 25 -16 7 degrees QTcB Int : 414 ms Normal sinus rhythm Cannot rule out Anterior infarct , age undetermined Abnormal ECG Confirmed by MAC CHILDERS, DILLON ([id number]), design editor OSMANY WILLOUGHBY ([id number]) on 05/01/2024 7:40:35 AM Referred By: Lewis Doll Confirmed By: DILLON WATTS MD
--- NOTE | 2024-04-30 13:53 | CT_ITS ---
PROCEDURE: EXTREMITY LOWER WITHOUT contrast. [facility] protocol. REASON FOR EXAM: Surgical planning for left knee replacement. TECHNIQUE: Multiple axial tomographic images of the hip joint, knee joint and ankle joint were obtained. Coronal and sagittal reconstruction was obtained as well. CT without intravenous contrast. COMPARISON: None. FINDINGS: Bones: No evidence of fracture. Joints: Imaging of the left hip joint was obtained. No significant joint space narrowing is seen. Imaging of the knee joint was obtained. Moderate degree of joint space narrowing involving the medial compartment of the knee joint. Imaging of the ankle joint was obtained. No significant abnormality is seen. Soft Tissues: Small knee joint effusion. CT/Extremity Lower without Contra IMPRESSION: Moderate amount of joint space narrowing involving the medial compartment of th e knee joint with a small joint effusion. One or more dose reduction techniques were used (e.g., Automated exposure contr ol, adjustment of the mA and/or kV according to patient size, use of iterative reconstruction technique). Reading Location: [facility]-
[2024-04-30 15:03] LABS: Absolute Lymphocyte Count 1.44 X10^3/uL (0.83-4.51); Absolute Neutrophil Count 4.8 X10^3/uL (2.0-7.7); Basophil# 0.05 X10^3/uL; Basophil% 0.7 % (0-1); Eosinophil# 0.17 X10^3/uL; Eosinophils% 2.4 % (0-5); Hematocrit 43.9 % (40-54); Hemoglobin 14.4 g/dL (13.0-16.5); Lymphocyte # 1.44 X10^3/ul (0.83-4.51); Lymphocyte % 20.3 % (19-41); Mean Corp Hgb Conc 32.8 g/dL (32-36); Mean Corpuscular Hgb 29.1 pg (27.0-32.0); Mean Corpuscular Volume 88.9 fL (80-94); Monocyte# 0.55 X10^3/uL; Monocyte% 7.8 % (0-10); NRBC Flagged by Analyzer 0 % (0-5); Neutrophil # 4.84 X10^3/uL (2.7-7.7); Neutrophil % 68.2 % (47-70); Platelet Count 236 K/mm3 (150-450); RBC Distribution Width CV 13.2 % (11.6-14.6); RBC Distribution Width SD 42.8 fl (35.1-43.9); Red Blood Count 4.94 M/mm3 (4.6-6.2); White Blood Count 7.1 K/mm3 (4.4-11.0)
[2024-04-30 15:44] LABS: Albumin, Serum 3.6 g/dL (3.2-5.0); Anion Gap 7 (5-15); BUN 17 mg/dL (7-18); BUN/Creat Ratio 15.9 RATIO (10-20); Calcium,Total 8.9 mg/dL (8.5-10.1); Chloride 104 mmol/L (98-107); Creatinine, Serum 1.07 mg/dL (0.70-1.30); EST Glomerular Filtration Rate 73 mL/min (>60); Est Glom Filt Rate - Afr Amer 88 mL/min (>60); Glucose 97 mg/dL (74-106); Potassium 3.9 mmol/L (3.5-5.1); Sodium Level 136 mmol/L (136-145)
== END | disposition home or self-care (01) ==
PROVIDERS: PCP Family Medicine; Referring Provider Family Medicine; Visit Provider Specialist
DX: Z01.818 Encounter for other preprocedural examination (principal); M17.12 Unilateral primary osteoarthritis, left knee; M21.062 Valgus deformity, not elsewhere classified, left knee; Z01.810 Encounter for preprocedural cardiovascular examination; E03.9 Hypothyroidism, unspecified
CPT/HCPCS: 36415; 73700; 80048; 82040; 84443; 85025; 93005

== ENCOUNTER → 2024-05-13 | Outpatient (CLI) | payer MEDICARE, SELFPAY | END | disposition home or self-care (01) | LOC: LABSPEC 16:48 | PROVIDERS: PCP Family Medicine; Referring Provider Otolaryngology Otolaryngology/Facial Plastic Surgery; Visit Provider Otolaryngology Otolaryngology/Facial Plastic Surgery | DX: J32.9 Chronic sinusitis, unspecified (principal) | CPT/HCPCS: 87070; 87205 ==

== ENCOUNTER → 2024-06-10 | Outpatient (CLI) | payer MEDICARE, SELFPAY ==
[2024-06-10 14:18] LABS: Absolute Lymphocyte Count 1.43 X10^3/uL (0.83-4.51); Absolute Neutrophil Count 7.9 X10^3/uL (2.0-7.7); Basophil# 0.06 X10^3/uL; Basophil% 0.6 % (0-1); Eosinophil# 0.27 X10^3/uL; Eosinophils% 2.6 % (0-5); Hematocrit 41.9 % (40-54); Hemoglobin 13.6 g/dL (13.0-16.5); Lymphocyte # 1.43 X10^3/ul (0.83-4.51); Lymphocyte % 13.7 % (19-41); Mean Corp Hgb Conc 32.5 g/dL (32-36); Mean Corpuscular Hgb 28.4 pg (27.0-32.0); Mean Corpuscular Volume 87.5 fL (80-94); Mean Platelet Vol. 10.2 fl (6.2-12.0); Monocyte# 0.68 X10^3/uL; Monocyte% 6.5 % (0-10); NRBC Flagged by Analyzer 0 % (0-5); Neutrophil # 7.93 X10^3/uL (2.7-7.7); Neutrophil % 76.2 % (47-70); Platelet Count 409 K/mm3 (150-450); RBC Distribution Width CV 13.3 % (11.6-14.6); RBC Distribution Width SD 42.9 fl (35.1-43.9); Red Blood Count 4.79 M/mm3 (4.6-6.2); White Blood Count 10.4 K/mm3 (4.4-11.0)
[2024-06-10 14:46] LABS: ALB/GLOB Ratio 1.6 RATIO (0.9-2.4); AST(SGOT) 26 U/L (<=37); Alanine Aminotransfer ALT/SGPT 23 U/L (<=46); Albumin, Serum 4.3 g/dL (3.4-4.8); Alkaline Phosphatase 115 U/L (40-129); Anion Gap 13 (5-15); BUN 18 mg/dL (4-19); BUN/Creat Ratio 16.8 RATIO (10-20); Calcium,Total 9.3 mg/dL (7.6-11.0); Carbon Dioxide 22.1 mmol/L (21.0-32.0); Chloride 102 mmol/L (98-108); Creatinine, Serum 1.09 mg/dL (0.70-1.20); EST Glomerular Filtration Rate 73 (>60); Globulin 2.8 g/dL (2.2-4.2); Glucose 100 mg/dL (70-99); Potassium 4.2 mmol/L (3.3-5.1); Protein, Total 7.1 g/dL (5.9-8.4); Sodium Level 137 mmol/L (133-145); Total Bilirubin 0.31 mg/dL (0.00-1.30); Uric Acid 5.1 mg/dL (3.5-7.2)
== END | disposition home or self-care (01) ==
LOC: LAB 13:10
PROVIDERS: PCP Family Medicine; Referring Provider Internal Medicine Rheumatology; Visit Provider Internal Medicine Rheumatology
DX: M06.4 Inflammatory polyarthropathy (principal); M10.9 Gout, unspecified; M18.0 Bilateral primary osteoarthritis of first carpometacarpal joints; M17.0 Bilateral primary osteoarthritis of knee; K90.0 Celiac disease; J30.89 Other allergic rhinitis; K76.0 Fatty (change of) liver, not elsewhere classified
CPT/HCPCS: 36415; 80053; 84550; 85025

== ENCOUNTER → 2024-08-28 | Outpatient (CLI) | payer MEDICARE, SELFPAY ==
[2024-08-28 17:10] LABS: Erythrocyte Sedimentation Rate 6 mm/hr (0-20)
[2024-08-28 18:38] LABS: ALB/GLOB Ratio 1.6 RATIO (0.9-2.4); AST(SGOT) 37 U/L (<=37); Alanine Aminotransfer ALT/SGPT 28 U/L (<=46); Albumin, Serum 4.1 g/dL (3.4-4.8); Alkaline Phosphatase 98 U/L (40-129); Anion Gap 12 (5-15); BUN 14 mg/dL (4-19); BUN/Creat Ratio 12.6 RATIO (10-20); Calcium,Total 9.1 mg/dL (7.6-11.0); Carbon Dioxide 23.8 mmol/L (21.0-32.0); Chloride 101 mmol/L (98-108); Creatinine, Serum 1.11 mg/dL (0.70-1.20); EST Glomerular Filtration Rate 71 (>60); Ferritin 145 ng/mL (37-417); Globulin 2.6 g/dL (2.2-4.2); Glucose 81 mg/dL (70-99); Potassium 3.9 mmol/L (3.3-5.1); Protein, Total 6.7 g/dL (5.9-8.4); Sodium Level 137 mmol/L (133-145); Total Bilirubin 0.45 mg/dL (0.00-1.30)
[2024-08-28 19:32] LABS: LDH 203 U/L (87-241)
== END | disposition home or self-care (01) ==
LOC: LAB 15:41
PROVIDERS: PCP Family Medicine; Referring Provider Internal Medicine Gastroenterology; Visit Provider Internal Medicine Gastroenterology
DX: K90.0 Celiac disease (principal); D64.9 Anemia, unspecified
CPT/HCPCS: 36415; 80053; 82164; 82728; 82784; 82785; 82787; 82941; 83516; 83615; 84165; 85652; 86003; 86036; 86037; 86140; 86225; 86235; 86255; 86334; 86480; 86671

== ENCOUNTER → 2024-09-16 | Outpatient (CLI) | payer MEDICARE, SELFPAY ==
--- NOTE | 2024-09-16 11:07 | NM_ITS ---
PROCEDURE: GASTRIC EMPTYING STUDY 09/16/2024 REASON FOR EXAM: BLOATING TECHNIQUE: The patient ingested a standard meal of oatmeal and water. Total time taken to ingest the meal was minutes. There was no vomiting postprandially. Anterior and posterior planar images of the upper abdomen were obtained for 1 minute immediately following the meal at 1h, 2h and 4h if more than 10% of the activity persisted within the stomach. Regions of interest were drawn, and a geometric mean was used to calculate a [id number]. RADIOPHARMACEUTICAL: Sulfur colloid DOSE 1.1mCi FINDINGS: Percent activity remaining in stomach: 1 hour 31 % (normal 37-90%) NM/Gastric Emptying Study IMPRESSION: Normal gastric emptying study. Reading Location: [id number]
[2024-09-16 13:33] LABS: Absolute Lymphocyte Count 1.47 X10^3/uL (0.83-4.51); Absolute Neutrophil Count 3.8 X10^3/uL (2.0-7.7); Basophil# 0.05 X10^3/uL; Basophil% 0.8 % (0-1); Eosinophil# 0.13 X10^3/uL; Eosinophils% 2.2 % (0-5); Hematocrit 42.6 % (40-54); Hemoglobin 13.9 g/dL (13.0-16.5); Lymphocyte # 1.47 X10^3/ul (0.83-4.51); Lymphocyte % 24.6 % (19-41); Mean Corp Hgb Conc 32.6 g/dL (32-36); Mean Corpuscular Hgb 28.9 pg (27.0-32.0); Mean Corpuscular Volume 88.6 fL (80-94); Mean Platelet Vol. 11.1 fl (6.2-12.0); Monocyte# 0.52 X10^3/uL; Monocyte% 8.7 % (0-10); NRBC Flagged by Analyzer 0 % (0-5); Neutrophil # 3.79 X10^3/uL (2.7-7.7); Neutrophil % 63.4 % (47-70); Platelet Count 243 K/mm3 (150-450); RBC Distribution Width CV 13.7 % (11.6-14.6); RBC Distribution Width SD 44.4 fl (35.1-43.9); Red Blood Count 4.81 M/mm3 (4.6-6.2)
[2024-09-16 14:21] LABS: ALB/GLOB Ratio 1.7 RATIO (0.9-2.4); AST(SGOT) 32 U/L (<=37); Alanine Aminotransfer ALT/SGPT 30 U/L (<=46); Albumin, Serum 4.2 g/dL (3.4-4.8); Alkaline Phosphatase 97 U/L (40-129); Anion Gap 11 (5-15); BUN 13 mg/dL (4-19); BUN/Creat Ratio 12.3 RATIO (10-20); Calcium,Total 8.9 mg/dL (7.6-11.0); Carbon Dioxide 24.7 mmol/L (21.0-32.0); Chloride 105 mmol/L (98-108); Creatinine, Serum 1.06 mg/dL (0.70-1.20); EST Glomerular Filtration Rate 75 (>60); Globulin 2.5 g/dL (2.2-4.2); Glucose 99 mg/dL (70-99); Potassium 4.3 mmol/L (3.3-5.1); Protein, Total 6.7 g/dL (5.9-8.4); Sodium Level 140 mmol/L (133-145); Total Bilirubin 0.33 mg/dL (0.00-1.30); Uric Acid 4.8 mg/dL (3.5-7.2)
== END | disposition home or self-care (01) ==
PROVIDERS: Internal Medicine Rheumatology; PCP Family Medicine; Referring Provider Internal Medicine Gastroenterology; Visit Provider Internal Medicine Gastroenterology
DX: M06.4 Inflammatory polyarthropathy (principal); Z79.899 Other long term (current) drug therapy; M10.9 Gout, unspecified
CPT/HCPCS: 36415; 78264; 80053; 84550; 85025; A9541

== ENCOUNTER → 2024-09-23 | Outpatient (CLI) | payer MEDICARE, SELFPAY ==
--- NOTE | 2024-09-23 17:17 | CT_ITS ---
PROCEDURE: ABDOMEN/PELVIS WITH CONTRAST 09/23/2024 REASON FOR EXAM: DUODENAL AND JEJUNAL ULCER TECHNIQUE: ABDOMEN/PELVIS WITH CONTRAST Coronal and Sagittal reconstruction series were provided. One or more dose reduction techniques were used (e.g., Automated exposure control, adjustment of the mA and/or kV according to patient size, use of iterative reconstruction technique. RADIATION DOSE SUMMARY: CTDlvol: 28 mGy DLP: 997 mGycm COMPARISON: 01/31/2024 FINDINGS: Dependent atelectasis. Normal heart size. Diffuse hepatic steatosis. Normal gallbladder. Normal pancreas, spleen, adrenal glands,. No hydronephrosis or ureteral stone. Part of the bladder herniates into the right inguinal canal but is intrinsically unremarkable. Normal prostate. No retroperitoneal or pelvic adenopathy. No free air. Nondistended bowel. Duodenal and jejunal multiple small bowel diverticula. Previously noted proximal jejunal enteritis has resolved. Normal appendix. Diverticulosis. No acute large bowel findings. Bilateral inguinal hernias of fat. Bladder component on the right. No bowel component. Lumbar spine degeneration. CT/Abdomen/Pelvis WITH Contrast IMPRESSION: Interval resolution of jejunal enteritis. No acute findings. Reading Location: [place] [id number]
== END | disposition home or self-care (01) ==
LOC: CT 17:14
PROVIDERS: PCP Family Medicine; Referring Provider Internal Medicine Gastroenterology; Visit Provider Internal Medicine Gastroenterology
DX: R14.0 Abdominal distension (gaseous) (principal); K90.0 Celiac disease
CPT/HCPCS: 74177; Q9967

== ENCOUNTER → 2024-10-10 | Outpatient (CLI) | payer MEDICARE, SELFPAY ==
[2024-10-15 02:07] LABS: Pancreatic Elastase, Fecal 481 (>200)
[2024-10-15 09:08] LABS: Calprotectin, Stool 136 ug/g (0-120); Fats, Neutral Normal (.); Fats, Total Normal (.)
== END | disposition home or self-care (01) ==
LOC: LABSPEC 12:14
PROVIDERS: PCP Family Medicine; Referring Provider Internal Medicine Gastroenterology; Visit Provider Internal Medicine Gastroenterology
DX: K90.0 Celiac disease (principal); K58.9 Irritable bowel syndrome, unspecified
CPT/HCPCS: 82274; 82653; 82705; 83630; 83993; 87177; 87209; 87329

== ENCOUNTER 2024-11-04 10:51 | Day surgery (SDC) | payer MEDICARE, SELFPAY ==
[2024-11-04] VITALS (8 sets, daily range): BP systolic 87–139; BP diastolic 69–93; PULSE 60–74; RESP 12–18; TEMP 36.4–36.6; O2SAT 94–100; BMI 28.4
--- NOTE | 2024-11-04 11:16 | PCM.HP.STD ---
HPI - General General Date of Admission: 11/04/24 Date of Service: 11/04/24 Chief Complaint: Celiac disease and abdominal pain HPI Narrative VIJI PAULINO, is a 69 M who presentsSTEPHENOK PAULINO, is a 68 M who presents to the office today for initial consult. [facility] ED 01.31.24 pt pesents with abdominal pain. Pt reports he had an EGD earlier in the day and has developed abd pain. abd/pelvis CT 01.31.24 1. Findings of duodenitis/enteritis with thickening of the distal duodenal and proximal jejunal wall, with surrounding mesenteric edema. Findings suspicious for a non-perforated ulcer of the distal duodenum. 2. Extensive colonic diverticulosis, without evidence for acute diverticulitis. 3. No findings of small bowel obstruction or obstructive uropathy. 4. Normal appendix. *BGI established 08.28.24 pt presents with long history of gas and bloating and celiac disease. Reports he has been treated for SIBO in the past which was sometimes helpful depending on the antibiotic; Xifaxan was ineffective previously. Pt reports he had an EGD with Dr Reynoso and then was having severe abdominal pain, went to the ER, and was told he had an ulcer which he now feels has resolved. [facility] Medical History Dietary restriction History of ulceration Former smoker Celiac disease Home Medications ?Medication ?Instructions ?Recorded ?Last Taken ?Type allopurinol 100 mg tablet 200 mg PO DAILY 01/30/24 11/02/24 History bisoprolol 2.5 1 tab DAILY 01/30/24 11/03/24 History mg-hydrochlorothiazide 6.25 mg tablet hydroxychloroquine 200 mg tablet 200 mg PO BID 01/30/24 11/02/24 History levothyroxine 25 mcg tablet 25 mcg PO DAILY 01/30/24 11/01/24 History azelastine 205.5 mcg (0.15 %) 1 spray intranasal QHS 08/28/24 11/03/24 History nasal spray cholecalciferol (vitamin D3) 25 25 mcg PO QDAY 08/28/24 11/02/24 History mcg (1,000 unit) capsule loratadine 10 mg tablet (Allergy 10 mg PO QDAY 08/28/24 11/02/24 History Relief (loratadine)) pseudoephedrine HCl 120 mg 120 mg PO Q12H 08/28/24 11/02/24 History tablet,extended release tramadol 50 mg tablet 50 mg PO Q8H PRN pain 08/28/24 Unknown History Allergy/AdvReac Type Severity Reaction Status Date / Time No Known Allergies Allergy Verified 05/11/24 13:59 Social History Smoking Status: Former smoker ROS Constitutional Constitutional: Denies fatigue, fever(s), poor appetite, weight gain or weight loss Gastrointestinal Gastrointestinal: Denies belching, bloating, change in bowel habits, change in stool character, chewing difficulty, coffee ground emesis, constipation, cramping, diarrhea, dyspepsia, dysphagia, early satiety, excessive flatus, fecal incontinence, heartburn, hematemesis, hematochezia, hemorrhoids, loose stools, melena, nausea, odynophagia, rectal bleeding, tenesmus, vomiting or weight changes Physical Exam Const alert, oriented x3, no apparent distress and healthy appearing General Appearance: cooperative GI normal to inspection, nondistended, normoactive bowel sounds, soft to palpation, non-tender and non-distended Percussion: normal to percussion Rectal Exam: deferred Assessment & Plan Assessment/Plan (1) Bloating: (2) Celiac disease: PLAN: Assessment and Plan Assessment and Plan (1) Celiac disease: Status: Acute (2) Bloating: Status: Acute Plan: 68 -year-old man was evaluated for excessive belching and gas at the GI clinic. He started noticing bothersome belching approximately 2 years ago that had progressively worsened. He described belching about 40 to 50 times in an hour. His symptoms were triggered by carbonated beverages and spicy foods and sometimes abated by taking slow deep breaths. He denied drinking caffeinated beverages, chewing gum, using nonsteroidal anti-inflammatory drugs (NSAIDs), eating fast, or having large amounts of food at a single seating. He reported occasional symptoms of water brash and heartburn, as well as bloating, occurring about 30 minutes after eating, in association with mild dull epigastric pain and early satiety. He also has a history of celiac disease which has been under control as per the patient. His last tissue transglutaminase was less than 2 in 2023. He did go to the emergency room to having worse abdominal pain, bloating and gas and was diagnosed with a ulcer at the duodenal jejunal junction. He was treated with PPI therapy and patient says that was resolved. He has not had any repeat imaging of his belly. He has no history of acute or chronic pancreatitis. He denied nocturnal symptoms of belching, dysphagia, odynophagia, globus sensation, hoarseness, diarrhea, constipation, or flatulence. He also has a history of gout, hypertension and is on allopurinol.he was treated multiple times for small bacterial overgrowth with multiple antibiotics with no success. We will undergo biochemical testing, food allergy testing, gastric emptying study and stool testing. He also needs a repeat CT scan abdomen pelvis with oral contrast to look at his previously diagnosed duodenal jejunal ulcer. Orders: Orders ROBERT + Protein Elect, Serum Today K90.0 - Celiac disease Celiac Disease Profile Today K90.0 - Celiac disease LDH Today K90.0 - Celiac disease ANCA Today K90.0 - Celiac disease Angiotensin Convert Enzyme Today K90.0 - Celiac disease CRP Today K90.0 - Celiac disease Erythrocyte Sed Rate Today K90.0 - Celiac disease Comprehensive Metabolic Profil Today K90.0 - Celiac disease Immunoglobulin E Today K90.0 - Celiac disease IgG Subclasses Today K90.0 - Celiac disease Ferritin Today D64.9 - Anemia, unspecified, K90.0 - Celiac disease Gastrin, Serum Today K90.0 - Celiac disease Fecal Fat, Qualitative Today K90.0 - Celiac disease Calprotectin, Stool Today K90.0 - Celiac disease Pancreatic Elastase, Fecal Today K90.0 - Celiac disease Stool Lactoferrin/WBC Today K58.9 - Irritable bowel syndrome, unspecified, K90.0 - Celiac disease OVA+PARA w/Giardia EIA [id number] Today K90.0 - Celiac disease Stool Occult Blood iFOB Today K90.0 - Celiac disease Quantiferon TB-Gold+ Today K90.0 - Celiac disease MÓNICA Comprehensive Panel Today K90.0 - Celiac disease Allergen, Food Profile Today K90.0 - Celiac disease IBD Expanded Profile Today K90.0 - Celiac disease
[2024-11-04] MEDS: Lactated Ringers 1,000 ML 15 ML IV (11:23)
--- NOTE | 2024-11-04 11:51 | PCM.PRE.AN2 ---
ASA Classification* ASA Classification ASA Classification: 3 Assessment & Plan Anesthesia* Anesthesia Assessment Anesthesia Assessment: Discussed sedation and/or anesthesia options, risks, benefits, and alternatives with patient/parents/legal guardian/POA. Questions invited. The patient/parents/legal guardian/POA seems to understand and agrees to proceed with anesthesia plan. Reviewed the physical assessment, medical history, allergy history and patient home medications list prior to surgery/procedure/anesthetic and documented any changes. Performed airway and anesthesia risk assessments. Anesthesia Type Anesthesia Type: MAC History Source History Obtained from:: Patient and Chart Anesthesia Focused Assessment* Temperature: 97.8 F Pulse Rate: 73 Blood Pressure: 139/93 Respiratory Rate: 18 Pulse Ox: 100 Oxygen Delivery Method: Room Air Airway Assessment Mouth opens: >3 cm Mallampati Score: III Teeth Condition: Caps/Crowns (Patient has 2 caps. They are tight.) Neck Range of motion (ROM): Limited ROM (Somewhat Decreased) Labs Anesthesia Preop lab: CBC WBC 6.0 K/mm3 (4.4-11.0) 09/16/24 12:53 09/16/24 RBC 4.81 M/mm3 (4.6-6.2) 09/16/24 12:53 09/16/24 Hgb 13.9 g/dL (13.0-16.5) 09/16/24 12:53 09/16/24 Hct 42.6 % (40-54) 09/16/24 12:53 09/16/24 Plt Count 243 K/mm3 (150-450) 09/16/24 12:53 09/16/24 CHEMISTRY Potassium 4.3 mmol/L (3.3-5.1) 09/16/24 12:53 09/16/24 Sodium 140 mmol/L (133-145) 09/16/24 12:53 09/16/24 BUN 13 mg/dL (4-19) 09/16/24 12:53 09/16/24 Creatinine 1.06 mg/dL (0.70-1.20) 09/16/24 12:53 09/16/24 Glucose 99 mg/dL (70-99) 09/16/24 12:53 09/16/24 TSH 2.900 uIU/mL (0.358-3.740) 04/30/24 14:23 04/30/24 COAG Pre-Assessment Diagnosis/Proposed Procedure Planned Operative Procedure(s): colonoscopy Anesthesia History 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 When Was Last Pacemaker Check QUESTION #4 FULL TEXT: You/Your Family Experience fever (hyperthermia) with Anesthesia Last Oral Intake Last Oral intake: Last Oral Intake NPO since 06:00 11/04/24 11:19 Meds taken in AM with sips of No 11/04/24 11:19 water? Meds patient instructed to take am of surgery Any additional information?: Yes NPO since: 09:00 (Patient had a black coffee at 9 AM.) Meds taken in AM with sips of water?: No PONV PONV - tnt line supervisor: PONV - tnt line supervisor Female No 11/04/24 11:06 HX of Motion Sickness Yes 11/04/24 11:06 HX of N/V After Surgery Yes 11/04/24 11:06 Non-Smoker Yes 11/04/24 11:06 Duration of Surgery greater No 11/04/24 11:06 than 60 minutes Number of Risk Factors 3 11/04/24 11:06 PONV Score Moderate Risk 11/04/24 11:06 Height & Weight Height & Weight: Anesthesia: Height & Weight Height 6 ft 11/04/24 11:19 Weight: 95 kg 11/04/24 11:19 Body Mass Index (BMI) 28.4 11/04/24 11:19 Respiratory Assessment Respiratory Assessment - tnt line supervisor: Respiratory Tract Infection Hx - tnt line supervisor Hx Respiratory Tract Infection No 11/04/24 11:06 STOP Sleep Apnea STOP Sleep Apnea - tnt line supervisor: STOP Sleep Apnea - tnt line supervisor Hx Hypertension Yes 11/04/24 11:06 Hx Sleep Apnea No 11/04/24 11:06 CPAP BIPAP Do you snore loudly (louder Yes 11/04/24 11:06 than talking or can be heard Do you often feel tired/ Yes 11/04/24 11:06 fatigued/ sleepy during daytime? Has anyone observed you stop No 11/04/24 11:06 breathing during sleep? STOP Results Positive 11/04/24 11:06 QUESTION #5 FULL TEXT : Do you snore loudly (louder than talking or can be heard through closed doors)? 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 Specify any problems Hx of Preganancy in last 3 N/A 11/04/24 11:06 Months Nurse Filling Out Transfusion [email or web address] 11/04/24 11:06 & Questions: Date: 11/04/24 11/04/24 11:06 Time: 11:10 11/04/24 11:06 Patient unable to answer at this time (ie. confused, unrespo /Reproduction History /Reproductive History - tnt line supervisor: /Reproductive Hx- tnt line supervisor Hx Now No 11/04/24 11:06 Gestational Age (in weeks): EDC: Hx Hx Para Hx Section SAB No 11/04/24 11:06 Active Medications Active Medications: Current Medications Generic Name Dose Route Start Last Admin Trade Name Freq PRN Reason Stop Dose Admin Lactated Ringer's 1,000 mls @ 15 mls/hr 11/04/24 11:00 11/04/24 11:23 IV 15 mls/hr .Q48H MASOOD Administration PFSH Medical History Wears hearing aid Wears glasses Alcohol use Thyroid disease Gout Rheumatoid arthritis Dietary restriction History of ulceration Former smoker Celiac disease Home Medications ?Medication ?Instructions ?Recorded ?Last Taken ?Type allopurinol 100 mg tablet 200 mg PO DAILY 01/30/24 11/02/24 History bisoprolol 2.5 1 tab DAILY 01/30/24 11/03/24 History mg-hydrochlorothiazide 6.25 mg tablet hydroxychloroquine 200 mg tablet 200 mg PO BID 01/30/24 11/02/24 History levothyroxine 25 mcg tablet 25 mcg PO DAILY 01/30/24 11/01/24 History azelastine 205.5 mcg (0.15 %) 1 spray intranasal QHS 08/28/24 11/03/24 History nasal spray cholecalciferol (vitamin D3) 25 25 mcg PO QDAY 08/28/24 11/02/24 History mcg (1,000 unit) capsule loratadine 10 mg tablet (Allergy 10 mg PO QDAY 08/28/24 11/02/24 History Relief (loratadine)) pseudoephedrine HCl 120 mg 120 mg PO Q12H 08/28/24 11/02/24 History tablet,extended release tramadol 50 mg tablet 50 mg PO Q8H PRN pain 08/28/24 Unknown History Allergy/AdvReac Type Severity Reaction Status Date / Time No Known Allergies Allergy Verified 05/11/24 13:59 Surgical History (Updated 11/04/24 @ 11:[address] Jose Dumont MD) H/O sinus surgery History of arthroplasty of left knee Social History Smoking Status: Former smoker Review of Systems (Anesthesia) ROS Narrative System reviewed and no additional complaints, except as documented.
--- NOTE | 2024-11-04 12:00 | COLBX_PTH ---
PATIENT: VIJI PAULINO LOC: EN U#:[id number] AGE/SX: 69/M ROOM: RE11/04/[address]: Dr. Karl Woods DO : 1955 BED: DIS: 11/04/2024 SPEC #: [id number] RECD: 11/04/24 12:36 STATUS: RITU REQ #: [id number] REYNALDO: 11/04/24 12:[address]: Karl Woods DEPT: SURGICAL PATHOLOGY RECD BY: Derian Tobar ENTERED: 11/04/24 14:28 SP TYPE: COLON BX OTHR DR: Dr. Lewis Doll DO Tissues: A - Ileum, NOS B - COLON BIOPSY C - Sigmoid colon biopsy Procedures: Surgery Specimen Level IV HEADER OPERATION: Colonoscopy with biopsy PRE-OP DIAGNOSIS: Bloating, Celiac disease TISSUE SUBMITTED: A- Terminal ileum biopsy, B- Random colon biopsy, C- Sigmoid biopsy MICROSCOPIC DIAGNOSIS A. Terminal ileum, biopsy: - Slight acute inflammation. - Mildly increased intraepithelial lymphocytes. B. Colon, random, biopsy: - No specific pathologic change. C. Sigmoid colon, biopsy: - No specific pathologic change. MICROSCOPIC DESCRIPTION Slides are reviewed. GROSS DESCRIPTION A. Received in fixative is one container labeled with the patient's name and designated Terminal ileum biopsy. The specimen consists of three irregular fragments of light dorsey soft tissue that measure 0.2 to 0.6 cm. The specimen is totally submitted in one cassette. B. Received in fixative is one container labeled with the patient's name and designated Random colon biopsy. The specimen consists of multiple irregular fragments of light dorsey soft tissue that in aggregate measure 1.6 x 0.4 x 0.1 cm. The specimen is totally submitted in one cassette. C. Received in fixative is one container labeled with the patient's name and designated Sigmoid biopsy. The specimen consists of three irregular fragments of light dorsey soft tissue that measure 0.4 to 0.8 cm. The specimen is totally submitted in one cassette. CO 11/04/2024 CPT:76843u8
--- NOTE | 2024-11-04 12:33 | OP.COLON_ITS ---
Patient Name: Franklyn Mosley Procedure Date: 11/04/2024 12:01 PM Date of : 1955 Age: 69 Procedure: Colonoscopy Indications: Generalized abdominal pain Providers: Karl Woods DO Medicines: Monitored Anesthesia Care Patient Profile: This is a 69 year old male. Refer to note in patient chart for documentation of history and physical. Last Colonoscopy: several years ago. Complications: No immediate complications. Procedure: Pre-Anesthesia Assessment: - Prior to the procedure, a History and Physical was performed, and patient medications and allergies were reviewed. The patient is competent. The risks and benefits of the procedure and the sedation options and risks were discussed with the patient. All questions were answered and informed consent was obtained. Patient identification and proposed procedure were verified by the physician in the pre-procedure area. Mental Status Examination: alert and oriented. Airway Examination: normal oropharyngeal airway and neck mobility. Respiratory Examination: clear to auscultation. CV Examination: normal. Prophylactic Antibiotics: The patient does not require prophylactic antibiotics. Prior Anticoagulants: The patient has taken no anticoagulant or antiplatelet agents except for NSAID medication. ASA Grade Assessment: II - A patient with mild systemic disease. After reviewing the risks and benefits, the patient was deemed in satisfactory condition to undergo the procedure. The anesthesia plan was to use monitored anesthesia care (MAC). Immediately prior to administration of medications, the patient was re-assessed for adequacy to receive sedatives. The heart rate, respiratory rate, oxygen saturations, blood pressure, adequacy of pulmonary ventilation, and response to care were monitored throughout the procedure. The physical status of the patient was re-assessed after the procedure. After I obtained informed consent, the scope was passed under direct vision. Throughout the procedure, the patient's blood pressure, pulse, and oxygen saturations were monitored continuously. The Colonoscope was introduced through the anus and advanced to the terminal ileum. The colonoscopy was performed without difficulty. The patient tolerated the procedure well. The quality of the bowel preparation was adequate. Scope In: 12:10:26 PM Scope Withdrawal Time 0 hours 8 minutes 53 seconds Scope Out: 12:23:07 PM Total Procedure Duration Time 0 hours 12 minutes 41 seconds Findings: The perianal and digital rectal examinations were normal. Multiple small and large-mouthed diverticula were found in the entire colon. Biopsies were taken with a cold forceps for histology. Verification of patient identification for the specimen was done. Estimated blood loss was minimal. Localized moderate inflammation characterized by congestion (edema), erosions, erythema, friability and granularity was found in the recto-sigmoid colon, in the sigmoid colon and in the descending colon. Biopsies were taken with a cold forceps for histology. Verification of patient identification for the specimen was done. Estimated blood loss was minimal. The terminal ileum appeared normal. Biopsies were taken with a cold forceps for histology. Verification of patient identification for the specimen was done. Estimated blood loss was minimal. Impression: - Diverticulosis in the entire examined colon. Biopsied. - Localized moderate inflammation was found in the recto-sigmoid colon, in the sigmoid colon and in the descending colon secondary to colitis. Biopsied. - The examined portion of the ileum was normal. Biopsied. Recommendation: - Discharge patient to home. - Resume previous diet. - Continue present medications. - Await pathology results. - Repeat colonoscopy to assess disease activity. - Augmentin twice a day x 10 days Procedure Code(s): --- Professional --- 61845, Colonoscopy, flexible; with biopsy, single or multiple CPT copyright 2021 [employer]. All rights reserved. The codes documented in this report are preliminary and upon semiconductor testing group leader review may be revised to meet current compliance requirements. Karl Woods DO 11/04/2024 12:32:34 PM This report has been signed electronically. Number of Addenda: 0 Note Initiated On: 11/04/2024 12:01 PM
--- NOTE | 2024-11-04 12:33 | OP.PROVAT_ITS ---
11/04/2024 Lewis Doll [address] [place] [address] Re : Colonoscopy procedure for Franklyn Mosley Dear Dr. Doll This procedure was performed on Monday, November 04, 2024. My impressions and recommendations are as follows: Impressions : - Diverticulosis in the entire examined colon. Biopsied. - Localized moderate inflammation was found in the recto-sigmoid colon, in the sigmoid colon and in the descending colon secondary to colitis. Biopsied. - The examined portion of the ileum was normal. Biopsied. Recommendations : - Discharge patient to home. - Resume previous diet. - Continue present medications. - Await pathology results. - Repeat colonoscopy to assess disease activity. - Augmentin twice a day x 10 days My findings are described in the full procedure note, which is enclosed. If I can be of further assistance, please feel free to contact me at . Sincerely, Karl Woods, 11/04/2024 12:32:34 PM This report has been signed electronically.
--- NOTE | 2024-11-04 12:33 | PCM.POST.ANE ---
Anesthesia: Postop Eval I Current Vital Signs Temperature: 97.8 F Pulse Rate: 62 Blood Pressure: 99/71 Respiratory Rate: 16 Pulse Ox: 95 Oxygen Delivery Method: Room Air Assessment Airway patent: Yes Spontaneous unlabored respirations: Yes Mental status: Asleep nausea: No Vomiting: No Anesthesia Complication: No Fluid Hydration Crystalloid volume administer (ml): 400 Total IV fluid infused: 400 Progress Note Anesthesia document: Postop Eval 1 completed: Yes
--- NOTE | 2024-11-04 14:18 | PCM.POSTANE2 ---
Anesthesia Postop Eval I Sum Postop Eval Completion status Anesthesia document: Postop Eval 1 completed: Yes Anesthesia Postop Eval I Summary Anesthesia Postop Eval I Summary: Anesthesia Postop Eval I: Assessment Summary Airway patent Yes 11/04/24 12:34 [email or web address] Spontaneous unlabored Yes 11/04/24 12:34 [email or web address] respirations Mental status Asleep 11/04/24 12:34 [email or web address] nausea No 11/04/24 12:34 [email or web address] Vomiting No 11/04/24 12:34 [email or web address] Anesthesia Postop Eval I: Fluid Summary Crystalloid volume administer 400 11/04/24 12:34 [email or web address] (ml) Colloids volume administered ( ml) Blood Product volume administered (ml) Total IV fluid infused 400 11/04/24 12:34 [email or web address] Anesthesia Postop Eval I: Summary Notes Anesthesia Complication No 11/04/24 12:34 [email or web address] Anesthesia Complication Comment: Post-operative progress note Anesthesia: Postop Eval II Evaluation Mental status: Awake and Calm Pain Level: 0 nausea: No Vomiting: No Complications Anesthesia Complication: No
== END 2024-11-04 13:06 | disposition home or self-care (01) ==
LOC: EN 10:52 → AC 10:53
PROVIDERS: PCP Family Medicine; Referring Provider Family Medicine; Visit Provider Internal Medicine Gastroenterology
PROC: 0DJD8ZZ Inspection of Lower Intestinal Tract, Via Natural or Artificial Opening Endoscopic (ICD-10-PCS; CPT 45378; principal; 2024-11-04 11:55)
DX: K52.9 Noninfective gastroenteritis and colitis, unspecified (principal); Z87.891 Personal history of nicotine dependence; R10.84 Generalized abdominal pain; K90.0 Celiac disease; R14.0 Abdominal distension (gaseous); K57.30 Diverticulosis of large intestine without perforation or abscess without bleeding
CPT/HCPCS: 45380; 88305; J2405

== ENCOUNTER → 2025-01-10 | Outpatient (CLI) | payer MEDICARE, SELFPAY ==
--- NOTE | 2025-01-10 09:13 | MRI_ITS ---
EXAM: ENTEROGRAPHY ABD/PEL 01/10/2025 CLINICAL HISTORY: K90.0 - CELIAC DISEASE. TECHNIQUE: Procedure Code: MRIMRIENTER Modality: MR Procedure: ENTEROGRAPHY ABD/PEL Multisequence, multiplanar MR imaging was performed without and with intravenous contrast. Oral contrast was administered. Contrast: Clariscan 20 cc COMPARISON: CT abdomen and pelvis dated 09/23/2024 FINDINGS: GI tract: Small-bowel distention:Adequate Bowel: There is no bowel wall thickening, abnormal bowel wall enhancement, or evidence of obstruction. No stricture, fistula, sinus tract, or abscess. Extensive diverticulosis present throughout the sigmoid colon and descending colon without active diverticulitis. Abdomen/pelvis: Evaluation of the abdominal and pelvic viscera is limited as the exam was optimized for evaluation of the small bowel. Visualized portions of the liver, pancreas, gallbladder, kidneys, adrenal glands, spleen and urinary bladder are within normal limits. No intrabdominal lymphadenopathy. Vessels: Normal caliber aorta. Superior mesenteric vein, portal vein, hepatic veins and splenic vein are patent. Proximal celiac artery, superior mesenteric artery and inferior mesenteric artery are patent. Bones: Normal signal. Multilevel degenerative disc disease. Soft tissues: Bilateral inguinal hernias. The right inguinal hernia contains portion of the bladder. There is no incarceration. MRI/Enterography Abd/Pel IMPRESSION: No segments of bowel wall thickening or hyper enhancement to indicate active in flammatory bowel disease. Bilateral inguinal hernias, the left containing fat and the right containing po rtion of the bladder without incarceration. Diverticulosis without active diverticulitis. Reading Location: [id number]
[2025-01-10 09:35] VITALS: BP 115/72; PULSE 73; RESP 16; O2SAT 99
[2025-01-10] MEDS: Glucagon 1 MG/ML Syringe IV (11:16)
[2025-01-10 11:33] VITALS: BP 138/85; PULSE 65; RESP 16; O2SAT 99
== END | disposition home or self-care (01) ==
LOC: MRI 09:10
PROVIDERS: PCP Family Medicine; Referring Provider Internal Medicine Gastroenterology; Visit Provider Internal Medicine Gastroenterology
DX: K90.0 Celiac disease (principal); R14.0 Abdominal distension (gaseous)
CPT/HCPCS: 74183; A9575; A4216; J1610

== ENCOUNTER → 2025-03-06 | Outpatient (CLI) | payer MEDICARE, SELFPAY ==
[2025-03-06 13:36] LABS: Hematocrit 43.5 % (40-54); Hemoglobin 14.4 g/dL (13.0-16.5); Immature Granulocytes Count 0.070 X10^3/uL (0.0-0.0); Mean Corp Hgb Conc 33.1 g/dL (32-36); Mean Corpuscular Volume 90.2 fL (80-94); Mean Platelet Vol. 10.5 fl (6.2-12.0); NRBC Flagged by Analyzer 0 % (0-5); Platelet Count 240 K/mm3 (150-450); RBC Distribution Width CV 13.4 % (11.6-14.6); RBC Distribution Width SD 44.3 fl (35.1-43.9); Red Blood Count 4.82 M/mm3 (4.6-6.2); White Blood Count 8.9 K/mm3 (4.4-11.0)
[2025-03-06 14:14] LABS: AST(SGOT) 35 U/L (<=37); Alanine Aminotransfer ALT/SGPT 45 U/L (<=46); Albumin, Serum 4.1 g/dL (3.4-4.8); Alkaline Phosphatase 80 U/L (40-129); Anion Gap 13 (5-15); BUN 15 mg/dL (4-19); BUN/Creat Ratio 13.2 RATIO (10-20); Calcium,Total 8.8 mg/dL (7.6-11.0); Carbon Dioxide 23.7 mmol/L (21.0-32.0); Chloride 104 mmol/L (98-108); Globulin 2.3 g/dL (2.2-4.2); Glucose 94 mg/dL (70-99); Potassium 3.9 mmol/L (3.3-5.1); Uric Acid 4.4 mg/dL (3.5-7.2)
== END | disposition home or self-care (01) ==
LOC: LAB 12:57
PROVIDERS: PCP Family Medicine; Referring Provider Internal Medicine Rheumatology; Visit Provider Internal Medicine Rheumatology
DX: M06.4 Inflammatory polyarthropathy (principal); Z79.899 Other long term (current) drug therapy; M10.9 Gout, unspecified; M18.0 Bilateral primary osteoarthritis of first carpometacarpal joints; M17.12 Unilateral primary osteoarthritis, left knee
CPT/HCPCS: 36415; 80053; 84550; 85025